=== PATIENT | female | born 1930 | race Caucasian/White ===

== ENCOUNTER 2016-10-04 12:41 | Emergency (ER) | payer MEDICARE, BC ==
--- NOTE | 2016-10-04 13:13 | EDM.PDOC ---
ED HPI GENERAL MEDICAL PROBLEM - General Chief Complaint: Cardiovascular Problem Stated Complaint: HIGH BP Time Seen by Provider: 10/04/16 13:12 Source of Information: Reports: Patient History Limitations: Reports: No Limitations - History of Present Illness INITIAL COMMENTS - FREE TEXT/NARRATIVE: 86-year-old female sent [place] due to discovery of marked elevation of blood pressure. Patient reports that her blood pressure was checked 3 times in a row on the same arm and each time it seemed to go higher. Apparently the systolic pressure was greater than 210 and the diastolic was greater than 112. feels fine without a headache visual acuity changes or nausea vomiting etc. She is in no pain. Initial blood pressure here is 153/59. 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 (see below) - Related Data Allergies Allergy/AdvReac Type Severity Reaction Status Date / Time meperidine HCl [From Demerol] Allergy unknown Verified 10/04/16 13:17 Home Meds: Home Meds Carvedilol 2 PO DAILY 05/28/13 [History] Citalopram [Citalopram Hbr] 20 mg PO DAILY 05/28/13 [History] Clopidogrel [Plavix] 75 mg PO DAILY 05/28/13 [History] Furosemide [Lasix] 20 mg PO DAILY 05/28/13 [History] Insulin Aspart [NovoLOG] SUBCUT 05/28/13 [History] Insulin Glarg,Human.Rec.Analog [Lantus] 16 units SQ QPM 05/28/13 [History] Insulin Glarg,Human.Rec.Analog [Lantus] 38 units SQ QAM 05/28/13 [History] Levothyroxine 25 mcg PO DAILY 05/28/13 [History] Lisinopril [Zestril] 20 mg PO Q12HR 05/28/13 [History] NIFEdipine [Nifedipine ER] 30 mg 05/28/13 [History] Omeprazole 40 mg PO DAILY 05/28/13 [History] atorvaSTATin [Lipitor] 20 mg PO DAILY 05/28/13 [History] hydrOXYzine HCl [hydrOXYzine] 12.5 - 25 mg PO ASDIRECTED 05/28/13 [History] Past Medical History Cardiovascular History: Reports: Bypass (5 bypass grafts in the past.), High Cholesterol, Hypertension, [place], Stents Gastrointestinal History: Reports: GERD Musculoskeletal History: Reports: Back Pain, Chronic, Osteoarthritis, Osteoporosis Neurological History: Reports: Other (See Below) (Chronic insomnia.) Psychiatric History: Reports: Depression Endocrine/Metabolic History: Reports: Diabetes, Type II (Controlled with insulin and patient reports diabetic control leaves a lot to be desired.), Obesity/BMI 30+ Social & Family History - Recreational Drug Use Recreational Drug Use: No - Living Situation & Occupation Living situation: Reports: , Extended Care Facility (Currently living at [facility].) Occupation: Retired ED ROS GENERAL - Review of Systems Review Of Systems: See Below Constitutional: Reports: Fatigue. Denies: Fever, Chills, Malaise, Weakness HEENT: Reports: Glasses Respiratory: Reports: Shortness of Breath (Shortness of breath on exertion.) Cardiovascular: Reports: Blood Pressure Problem (Chronic hypertension), Dyspnea on Exertion, Edema (Chronic mild edema in both lower extremities she wears ROSSY stockings daily.) Endocrine: Reports: Fatigue, High Glucose (Has known type 2 diabetes which she reports is not all that well controlled.) GI/Abdominal: Reports: Constipation. Denies: Abdominal Pain, Anorexia, Decreased Appetite : Reports: Frequency, Incontinence (Urge and stress component) Musculoskeletal: Reports: Neck Pain, Back Pain, Joint Pain (Knees and hips. Walks with aid of a walker.) Skin: Reports: No Symptoms Neurological: Reports: No Symptoms Psychiatric: Reports: No Symptoms Hematologic/Lymphatic: Reports: No Symptoms Immunologic: Reports: No Symptoms ED EXAM, GENERAL - Physical Exam Exam: See Below Exam Limited By: No Limitations General Appearance: Alert, WD/WN, No Apparent Distress Eye Exam: Bilateral Eye: Normal Fundi, Normal Inspection Throat/Mouth: Normal Inspection, Normal Oropharynx Head: Atraumatic, Normocephalic Neck: Normal Inspection, Supple, Non-Tender, Full Range of Motion. No: Carotid Bruit, Lymphadenopathy (R) Respiratory/Chest: No Respiratory Distress, Lungs Clear, Normal Breath Sounds, No Accessory Muscle Use, Other (Well-healed sternotomy incision. She's had 5 bypasses in the past.) Cardiovascular: Regular Rate, Rhythm, No Gallop, No Murmur, No Rub. No: Normal Peripheral Pulses, No Edema Peripheral Pulses: 1+: Posterior Tibial (L), Posterior Tibial (R), Dorsalis Pedis (L), Dorsalis Pedis (R) GI/Abdominal: Normal Bowel Sounds, Soft, Non-Tender, No Distention, Other ( Abdominal girth limits ability to palpate solid organs.) Back Exam: Normal Inspection, Full Range of Motion. No: CVA Tenderness (L), CVA Tenderness (R) Extremities: Pedal Edema (Trace edema both lower extremities at ankles.) Neurological: Alert, Oriented, CN II-XII Intact, Normal Cognition Psychiatric: Normal Affect, Normal Mood Skin Exam: Warm, Dry, Intact, Normal Color, No Rash Course - Vital Signs Last Recorded V/S: Last Vital Signs Temp 36.1 C 10/04/16 13:13 Pulse 61 10/04/16 13:13 Resp 18 10/04/16 13:13 BP 153/59 H 10/04/16 13:13 Pulse Ox 94 L 10/04/16 13:13 - Orders/Labs/Meds Orders: Active Orders 24 hr Category Date Time Status Orthostatic Vital Signs [RC] ASDIRECTED Care 10/04/16 13:23 Active - Radiology Interpretation Free Text/Narrative:: 86-year-old female presents the ED for evaluation of reported marked elevation her blood pressure. EP was reported to be greater than 210 systolically greater than 112 diastolically. Apparently blood pressure was repeated in the same arm on 3 occasions and each time it went higher. Therefore she was advised to come to the emergency room for evaluation. However she is asymptomatic. And blood pressure here initially was 153/59 and for the most part is staying between 135 and 150 systolically. At the time of discharge was 148 on 44 with a heart rate of 62. She was monitored in the ER for approximately an hour. No tests were done. She will be discharged back to home with no changes to medications to be made. Departure - Departure Time of Disposition: 13:55 Disposition: Home, Self-Care 01 Condition: Fair Clinical Impression: Labile essential hypertension Referrals: Jay Kowalski MD [Primary Care Provider] - Forms: ED Department Discharge Additional Instructions: Evaluation in the emergency room today in regards to reported very high blood pressure with a systolic her top number greater than 210 and the diastolic number reported to be greater than 112. Blood pressure initially here was 153 over 59 and came down as low as 143/52. Monitoring revealed blood pressure to be adequately controlled. Therefore at this time no changes in medications are advised. Suggest blood pressure checks on a random basis to see if there is marked lability which means roller coaster up and down changes to blood pressure that may make us you some blood pressure medications in the morning and some in the evening to try and prevent pressure spikes. Follow-up with her personal physician as planned. - My Orders Last 24 Hours: My Active Orders 10/04/16 13:23 Orthostatic Vital Signs [RC] ASDIRECTED - Assessment/Plan Last 24 Hours: My Active Orders 10/04/16 13:23 Orthostatic Vital Signs [RC] ASDIRECTED
[2016-10-04 13:15] VITALS: BP 153/59
== END 2016-10-04 14:20 | disposition home or self-care (01) ==
LOC: JD.ED 12:41
DX: I25.2 Old myocardial infarction (principal); E78.00 Pure hypercholesterolemia, unspecified; K21.9 Gastro-esophageal reflux disease without esophagitis; M19.90 Unspecified osteoarthritis, unspecified site; M81.0 Age-related osteoporosis without current pathological fracture; E11.9 Type 2 diabetes mellitus without complications; E66.9 Obesity, unspecified; F32.9 Major depressive disorder, single episode, unspecified; Z95.1 Presence of aortocoronary bypass graft; Z79.4 Long term (current) use of insulin; Z79.02 Long term (current) use of antithrombotics/antiplatelets; Z79.899 Other long term (current) drug therapy; Z88.6 Allergy status to analgesic agent; Z68.38 Body mass index [BMI] 38.0-38.9, adult
CPT/HCPCS: 99282; 99283

== ENCOUNTER 2017-08-15 15:42 | Emergency (ER) | payer MEDICARE, BC ==
[2017-08-15] MEDS ORDERED: Meclizine 12.5 MG Tab PO ONE (16:51)
[2017-08-15] MEDS ORDERED: Sodium Chloride 0.9% 10 ML Syringe FLUSH PRN (16:51)
--- NOTE | 2017-08-15 16:57 | EDM.PDOC ---
ED HPI GENERAL MEDICAL PROBLEM - General Chief Complaint: Syncope Stated Complaint: DIZZYNESS Time Seen by Provider: 08/15/17 16:05 Source of Information: Reports: Patient History Limitations: Reports: No Limitations - History of Present Illness INITIAL COMMENTS - FREE TEXT/NARRATIVE: Patient is complaining dizziness that started at around 1400hrs. Patient was in the bathroom and felt dizzy and had to catch herself from falling. Patient dened having a BM and was no pushing hard with urinating. Patient states movement does worsen the dizziness. She has history of vertigo. States symptoms were similar to previous episodes. Currently has no symptoms. Daughter states after the episode she did dano lean to the left and was able to walk with assistance. Patient has a history of stroke right side with no deficits. She presents to the E.D. with elevated BP. Patient and daughter state this is a normal reading for the patient. She denies symptoms experienced today were similar to previous stroke symptoms. She denies headache, vision changes, stiff neck, no sitting tingling, dysuria, chest pain, shortness of breath, fever, increased weight, increased swelling to lower extremities, swallowing issues, and or any additional complaints. Past medical history: PID, hypertension, depression, type 2 diabetes, hyperlipidemia, coronary disease, edema, chronic pain, osteoarthritis, hypothyroidism, encephalopathy, TIA, subdural hematoma/hemorrhage, venous insufficiency Current medications include: see list. - Related Data Allergies Allergy/AdvReac Type Severity Reaction Status Date / Time meperidine HCl [From Demerol] Allergy Vomiting Verified 08/15/17 15:56 metformin Allergy Other Verified 08/15/17 15:57 morphine Allergy Vomiting Verified 08/15/17 15:57 Home Meds: Home Meds Carvedilol 25 mg PO DAILY 05/28/13 [History] Citalopram [Citalopram Hbr] 20 mg PO DAILY 05/28/13 [History] Clopidogrel [Plavix] 75 mg PO DAILY 05/28/13 [History] Furosemide [Lasix] 20 mg PO DAILY 05/28/13 [History] Insulin Aspart [NovoLOG] 10 units SUBCUT ASDIRECTED 05/28/13 [History] Insulin Glarg,Human.Rec.Analog [Lantus] 16 units SQ QPM 05/28/13 [History] Insulin Glarg,Human.Rec.Analog [Lantus] 38 units SQ QAM 05/28/13 [History] Levothyroxine 25 mcg PO DAILY 05/28/13 [History] Lisinopril [Zestril] 20 mg PO Q12HR 05/28/13 [History] NIFEdipine [Nifedipine ER] 30 mg PO DAILY 05/28/13 [History] Omeprazole 40 mg PO DAILY 05/28/13 [History] atorvaSTATin [Lipitor] 20 mg PO DAILY 05/28/13 [History] hydrOXYzine HCl [hydrOXYzine] 12.5 - 25 mg PO ASDIRECTED 05/28/13 [History] Past Medical History Cardiovascular History: Reports: Bypass, High Cholesterol, Hypertension, [place], Stents Gastrointestinal History: Reports: 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 Psychiatric History: Reports: Depression Endocrine/Metabolic History: Reports: Diabetes, Type II, Obesity/BMI 30+ - Past Surgical History Cardiovascular Surgical History: Reports: Coronary Artery Bypass Social & Family History - Family History Family Medical History: Noncontributory - Tobacco Use Smoking Status *Q: Former Smoker Used Tobacco, but Quit: Yes Month/Year Tobacco Last Used: 1974 - Caffeine Use Caffeine Use: Reports: Coffee - Recreational Drug Use Recreational Drug Use: No - Living Situation & Occupation Living situation: Reports: , Extended Care Facility (Currently living at [facility].) Occupation: Retired ED ROS GENERAL - Review of Systems Review Of Systems: See Below Constitutional: Reports: No Symptoms HEENT: Reports: No Symptoms Respiratory: Reports: No Symptoms Cardiovascular: Reports: No Symptoms Endocrine: Reports: No Symptoms GI/Abdominal: Reports: No Symptoms : Reports: No Symptoms Musculoskeletal: Reports: No Symptoms Neurological: Reports: Dizziness, Headache, Gait Disturbance. Denies: Numbness , Pre-Existing Deficit, Seizure, Syncope, Tingling, Weakness ED EXAM, DIZZINESS - Physical Exam Exam: See Below Exam Limited By: No Limitations General Appearance: Alert, WD/WN, No Apparent Distress Eye Exam: Bilateral Eye: EOMI, Nystagmus (none noted), PERRL Nystagmus: No: worsens with head to L, worsens with head to R, reproducible, reversible, constant, short duration Ears: Normal External Exam, Normal Canal, Hearing Grossly Normal, Normal TMs Nose: Normal Inspection Throat/Mouth: Normal Inspection, Normal Oropharynx, Normal Voice Head Exam: Atraumatic, Normocephalic Vertigo: worsens with head to L. No: worsens with head to R, reproducible, reversible, constant, short duration Neck: Normal Inspection, Supple, Non-Tender. No: Carotid Bruit Respiratory/Chest: No Respiratory Distress, Lungs Clear, Normal Breath Sounds, No Accessory Muscle Use, Chest Non-Tender Cardiovascular: Normal Peripheral Pulses, Regular Rate, Rhythm, No Murmur GI/Abdominal: Normal Bowel Sounds, Soft, Non-Tender, No Distention Neurological: Alert, Normal Mood/Affect, Normal Dorsiflexion, CN II-XII Intact, Normal Plantar Flexion, No Motor/Sensory Deficits, Oriented x 3, Other (No facial droop, slurred speech, tongue deviation, pronator drift, and or nystagmus. No weakness discrepancies to the upper/lower extremities. Cerebellar fx intact: finger to nose, rapid alternating movements, and heal to holt. ) Extremities: Normal Inspection, Normal Range of Motion, Non-Tender, Normal Capillary Refill Psychiatric: Normal Affect, Normal Mood Skin Exam: Warm, Dry, Intact, Normal Color, No Rash Course - Vital Signs Last Recorded V/S: Last Vital Signs Temp 97.2 F 08/15/17 15:51 Pulse 63 08/15/17 15:51 Resp 18 08/15/17 15:51 BP 210/77 H 08/15/17 18:23 Pulse Ox 95 08/15/17 15:51 Orthostatic Blood Pressure [ 197/76 Standing] Orthostatic Blood Pressure [ 208/73 Sitting] Orthostatic Blood Pressure [ 192/69 Supine] - Orders/Labs/Meds Labs: Laboratory Tests 08/15/17 08/15/17 08/15/17 Range/Units 16:52 16:55 16:55 WBC 6.82 (3.98-10.04) K/mm3 RBC 4.74 (3.98-5.22) M/mm3 Hgb 11.9 (11.2-15.7) gm/L Hct 39.1 (34.1-44.9) % MCV 82.5 (79.4-94.8) fl MCH 25.1 L (25.6-32.2) pg MCHC 30.4 L (32.2-35.5) g/dl RDW Std Deviation 44.1 (36.4-46.3) fL Plt Count 214 (182-369) K/mm3 MPV 10.8 (9.4-12.3) fl Neutrophils % (Manual) 53 (40-60) % Band Neutrophils % 0 (0-10) % Lymphocytes % (Manual) 37 (20-40) % Atypical Lymphs % 6 % Monocytes % (Manual) 1 L (2-10) % Eosinophils % (Manual) 3 (0.7-5.8) % Basophils % (Manual) 0 L (0.1-1.2) Platelet Estimate Adequate Plt Morphology Comment Normal RBC Morph Comment Normal Sodium 138 (136-145) mEq/L Potassium 3.6 (3.5-5.1) mEq/L Chloride 101 (98-107) mEq/L Carbon Dioxide 29 (21-32) mEq/L Anion Gap 11.6 (5-15) BUN 19 H (7-18) mg/dL Creatinine 0.9 (0.55-1.02) mg/dL Est Cr Clr Drug Dosing 38.88 mL/min Estimated GFR (MDRD) 59 (>60) mL/min BUN/Creatinine Ratio 21.1 H (14-18) Glucose 213 H (83-115) mg/dL POC Glucose (83-110) mg/dL Calcium 8.8 (8.5-10.1) mg/dL Total Bilirubin 0.3 (0.2-1.0) mg/dL AST 24 (15-37) U/L ALT 29 (14-59) U/L Alkaline Phosphatase 95 (46-116) U/L Troponin I < 0.017 (0.00-0.056) ng/mL Total Protein 7.3 (6.4-8.2) g/dl Albumin 3.4 (3.4-5.0) g/dl Globulin 3.9 gm/dL Albumin/Globulin Ratio 0.9 L (1-2) TSH 3rd Generation 1.603 (0.358-3.74) uIU/mL Urine Color Yellow (Yellow) Urine Appearance Slt cloudy H (Clear) Urine pH 6.0 (5.0-8.0) Ur Specific Sullivan > or = 1.030 (1.005-1.030) Urine Protein 1+ H (Negative) Urine Glucose (UA) Negative (Negative) Urine Ketones Trace H (Negative) Urine Occult Blood Negative (Negative) Urine Nitrite Negative (Negative) Urine Bilirubin 1+ H (Negative) Urine Urobilinogen 1.0 (0.2-1.0) Ur Leukocyte Esterase Negative (Negative) Urine RBC 0-5 (0-5) /hpf Urine WBC 0-5 (0-5) /hpf Ur Epithelial Cells 0-5 (0-5) /hpf Urine Bacteria Moderate H (FEW) /hpf Urine Mucus Not seen (FEW) /hpf 08/15/17 Range/Units 18:04 WBC (3.98-10.04) K/mm3 RBC (3.98-5.22) M/mm3 Hgb (11.2-15.7) gm/L Hct (34.1-44.9) % MCV (79.4-94.8) fl MCH (25.6-32.2) pg MCHC (32.2-35.5) g/dl RDW Std Deviation (36.4-46.3) fL Plt Count (182-369) K/mm3 MPV (9.4-12.3) fl Neutrophils % (Manual) (40-60) % Band Neutrophils % (0-10) % Lymphocytes % (Manual) (20-40) % Atypical Lymphs % % Monocytes % (Manual) (2-10) % Eosinophils % (Manual) (0.7-5.8) % Basophils % (Manual) (0.1-1.2) Platelet Estimate Plt Morphology Comment RBC Morph Comment Sodium (136-145) mEq/L Potassium (3.5-5.1) mEq/L Chloride (98-107) mEq/L Carbon Dioxide (21-32) mEq/L Anion Gap (5-15) BUN (7-18) mg/dL Creatinine (0.55-1.02) mg/dL Est Cr Clr Drug Dosing mL/min Estimated GFR (MDRD) (>60) mL/min BUN/Creatinine Ratio (14-18) Glucose (83-115) mg/dL POC Glucose 207 H (83-110) mg/dL Calcium (8.5-10.1) mg/dL Total Bilirubin (0.2-1.0) mg/dL AST (15-37) U/L ALT (14-59) U/L Alkaline Phosphatase (46-116) U/L Troponin I (0.00-0.056) ng/mL Total Protein (6.4-8.2) g/dl Albumin (3.4-5.0) g/dl Globulin gm/dL Albumin/Globulin Ratio (1-2) TSH 3rd Generation (0.358-3.74) uIU/mL Urine Color (Yellow) Urine Appearance (Clear) Urine pH (5.0-8.0) Ur Specific Sullivan (1.005-1.030) Urine Protein (Negative) Urine Glucose (UA) (Negative) Urine Ketones (Negative) Urine Occult Blood (Negative) Urine Nitrite (Negative) Urine Bilirubin (Negative) Urine Urobilinogen (0.2-1.0) Ur Leukocyte Esterase (Negative) Urine RBC (0-5) /hpf Urine WBC (0-5) /hpf Ur Epithelial Cells (0-5) /hpf Urine Bacteria (FEW) /hpf Urine Mucus (FEW) /hpf Meds: Medications Discontinued Medications Generic Name Dose Route Start Last Admin Trade Name Freq PRN Reason Stop Dose Admin Clonidine HCl 0.2 mg 08/15/17 18:12 08/15/17 18:23 Catapres PO 08/15/17 18:13 0.2 mg ONETIME ONE Administration Sodium Chloride 1,000 mls @ 150 mls/hr 08/15/17 17:00 08/15/17 17:01 Normal Saline IV 150 mls/hr ASDIRECTED ANA Administration Meclizine HCl 12.5 mg 08/15/17 16:51 08/15/17 16:59 Antivert PO 08/15/17 16:52 12.5 mg ONETIME ONE Administration Sodium Chloride 10 ml 08/15/17 16:51 08/15/17 16:59 Saline Flush FLUSH 10 ml ASDIRECTED PRN Administration Keep Vein Open - Re-Assessments/Exams Free Text/Narrative Re-Assessment/Exam: IV established with with initial blood work including: CBC, chem 14, troponin, TSH, UA, orthostatic vital signs, and EKG. CT of the head without contrast obtained. Ordered meclizine 12.5mg po and NS 150mls/hr. Per nursing staff patient did get up to walk with no difficulties. No gate abnormalities noted. EKG: Sinus rhythm at a rate of 56 with QTC 448 and AL interval 188. Q waves anterior lateral leads with mild ST elevation beats V2. T wave inversion in leads 1 and V4 through 6. Blood pressure continues to run high. Last reading 214/84. Will await for CT of the head prior to initiating any treatment. CT head w/o contrast: No acute intracranial abnormalities noted. Reviewed with Dr. Sharma. 1954 BP 222/93 right, 229/95 left. Discussed patient with Dr. Sharma and he agreed with administration of clonidine. Suggested higher dose of 0.2mg PO. Labs reviewed: CBC essentially normal. CMP revealed a slightly elevated BUN and glucose of 213. Troponin within normal limits. TSH normal. UA protein one plus, trace ketones, bilirubin 1+, bacteria moderate. Urine wbc's , nitrates, leukocyte Estrace all negative. 1911 blood pressure 195/68. 1940 BP 179/71. 08/15/17 19:51 172/52. Patient did get up and ambulate with no difficulties. Still to do not have clear indication why patients BP was elevated. Symptoms came on at noon today after eating. Thus troponin should have been positive if heart related.She has had no cp, sob, palpations, and or pre/syncopal episodes. Dizziness came about with body position changes. Described as room spinning. This has since resolved. Do not think patient had a TIA with no neurological findings on examination. I do not think CTA of the head and neck would be beneficial at this time. I will have patient see her PCP on followup this week. I discussed the concerning symptoms for which to return to the E.D. with the patient/ family. The patient/family verbalized understanding. All questions were answered. Departure - Departure Time of Disposition: 20:01 Disposition: Home, Self-Care 01 Condition: Good Clinical Impression: Hypertension Qualifiers: Hypertension type: unspecified Qualified Code(s): I10 - Essential (primary) hypertension - Discharge Information Instructions: How to Take Your Blood Pressure, [id number], DASH Eating Plan, Hypertension, [id number], Managing Your Hypertension, Preventing Cerebrovascular Disease Referrals: Jay Kowalski MD [Primary Care Provider] - Forms: ED Department Discharge Additional Instructions: Do not have clear reason for why blood pressure was elevated. Suspect dizziness was related to the elevated BP. Please followup with PCP this week for reevaluation. Return to the E.D. if you develop any new or worsening symptoms as discussed. Check your blood pressure every other day at different times during the day. Allow yourself approximately 15 minutes to relax prior to taking. Do not take if in pain, with increased anxiety, or just had exercised. Keep a log with the blood pressure readings. Take your blood pressure machine and log with you to your next appointment with PCP to ensure blood pressure machine is calibrated appropriately.
[2017-08-15] MEDS ORDERED: Sodium Chloride 0.9% 1,000 ML IV SCH (17:00)
[2017-08-15] MEDS ORDERED: cloNIDine 0.1 MG Tab PO ONE (18:12)
[2017-08-15 18:24] VITALS: BP 210/77
--- NOTE | 2017-08-16 08:29 | CT ---
Head CT Technique: Multiple axial sections through the brain were obtained. Intravenous contrast was not utilized. Comparison: Prior head CT exam of 12/25/14. Findings: Ventricles along with basal cisterns and sulci over the convexities are moderately prominent. Diminished density is noted within the periventricular and subcortical white matter which is felt compatible with small vessel ischemic demyelination change. Old lacunar infarcts are also noted within the basal ganglia. No other abnormal parenchymal densities are seen. No evidence of intracranial hemorrhage. No midline shift or mass effect is seen. Bone window settings show mucosal thickening within the right side of the sphenoid sinus which is an interval change from previous exam. Atherosclerotic calcification is noted within the carotid siphon. No acute calvarial abnormality is seen. 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 Impression: 1. Senescent changes as described above. No acute intracranial abnormality is appreciated. No significant change is seen from prior study other than mild chronic appearing sinus disease within the right sphenoid sinus. Diagnostic code #2 I agree with preliminary report from [facility], finalized at 08/15/17, 6:54 PM Central Time
== END 2017-08-15 20:15 | disposition home or self-care (01) ==
LOC: JD.ED 15:42
DX: I10 Essential (primary) hypertension (principal); E11.9 Type 2 diabetes mellitus without complications; E78.5 Hyperlipidemia, unspecified; F32.9 Major depressive disorder, single episode, unspecified; Z79.84 Long term (current) use of oral hypoglycemic drugs; Z88.5 Allergy status to narcotic agent; Z79.4 Long term (current) use of insulin
CPT/HCPCS: 36415; 70450; 80053; 81001; 82962; 84443; 84484; 85007; 85027; 93005; 96360; 96361; 99285; A9270; J7040; J7050; 99283

== ENCOUNTER 2018-05-20 13:47 | Inpatient (IN) | payer MEDICARE, BC ==
[2018-05-20] MEDS ORDERED: Sodium Chloride 0.9% 10 ML Syringe FLUSH PRN (13:53)
[2018-05-20] MEDS ORDERED: Ondansetron 4 MG/2 ML SDV IVPUSH ONE (14:07)
--- NOTE | 2018-05-20 14:31 | CT ---
Head CT Technique: Multiple axial sections through the brain were obtained. Intravenous contrast was not utilized. Comparison: Prior head CT study of 08/15/17. Findings: Ventricles along with basal cisterns and sulci over the convexities are moderately prominent. Diminished density is noted within the periventricular and subcortical white matter compatible with small vessel ischemic demyelination change. Old appearing lacunar infarcts are noted on both sides of the basal ganglia. No other abnormal parenchymal densities are seen. No evidence of intracranial hemorrhage. No midline shift or mass effect is seen. Bone window settings were reviewed which shows bilateral jason holes. No acute calvarial abnormality is seen. Rounded soft tissue density seen within the sphenoid sinus compatible with retention cyst measuring 1.3 cm. Impression: 1. Senescent change as noted above. 2. Incidental sinus finding. 3. 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 4. No acute intracranial abnormality is appreciated. Diagnostic code #2
--- NOTE | 2018-05-20 15:39 | EDM.PDOC ---
ED HPI GENERAL MEDICAL PROBLEM - General Chief Complaint: Neuro Symptoms/Deficits Stated Complaint: SPEECH PROBLEMS, Time Seen by Provider: 05/20/18 13:48 Source of Information: Reports: Patient, Family History Limitations: Reports: No Limitations - History of Present Illness INITIAL COMMENTS - FREE TEXT/NARRATIVE: The patient presents from [facility] for a possible stroke. The patient's last known well was 12pm or noon today. She came down for lunch and her daughter joined her after and she noticed something was not right. The patient could not speak and was mixing words up. She could walk and move her arms. She did say she had a headache. When she arrived here, she could not speak. She was able to stand up from the wheel chair and sit on the cot and she moved her arms. She could not answer any questions for me. She could follow commands. Onset: Sudden Duration: Hour(s): (noon) Location: Reports: Head Severity: Moderate Improves with: Reports: None Worsens with: Reports: None Associated Symptoms: Reports: Headaches. Denies: Cough, Fever/Chills, Nausea/ Vomiting, Shortness of Breath - Related Data Allergies Allergy/AdvReac Type Severity Reaction Status Date / Time meperidine HCl [From Demerol] Allergy Vomiting Verified 08/15/17 15:56 metformin Allergy Other Verified 08/15/17 15:57 morphine Allergy Vomiting Verified 08/15/17 15:57 Home Meds: Home Meds Carvedilol 25 mg PO BID 05/28/13 [History] Citalopram [Citalopram Hbr] 10 mg PO DAILY 05/28/13 [History] Clopidogrel [Plavix] 75 mg PO DAILY 05/28/13 [History] Furosemide [Lasix] 20 mg PO DAILY 05/28/13 [History] Insulin Aspart [NovoLOG] 10 units SUBCUT ASDIRECTED 05/28/13 [History] Insulin Glarg,Human.Rec.Analog [Lantus] 16 units SQ QPM 05/28/13 [History] Insulin Glarg,Human.Rec.Analog [Lantus] 38 units SQ QAM 05/28/13 [History] Levothyroxine 25 mcg PO DAILY 05/28/13 [History] Lisinopril [Zestril] 20 mg PO Q12HR 05/28/13 [History] Omeprazole 40 mg PO DAILY 05/28/13 [History] atorvaSTATin [Lipitor] 20 mg PO BEDTIME 05/28/13 [History] Acetaminophen [Tylenol] 650 mg PO BID 05/20/18 [History] Diltiazem [Cardizem CD] 120 mg PO DAILY 05/20/18 [History] Hydrocortisone [Hydrocortisone 1% Crm] 1 mg TOP BID 05/20/18 [History] Multivitamin [Multivitamins] 1 each PO DAILY 05/20/18 [History] Nystatin [Nystatin Crm] 1 gm TOP BID 05/20/18 [History] Spironolactone [Aldactone] 12.5 mg PO DAILY 05/20/18 [History] Past Medical History Cardiovascular History: Reports: Bypass, High Cholesterol, Hypertension, [place], Stents Gastrointestinal History: Reports: [employer] History: Reports: Musculoskeletal History: Reports: Back Pain, Chronic, Osteoarthritis, Osteoporosis Neurological History: Reports: Other (See Below) Other Neuro History: 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 Psychiatric History: Reports: Depression Endocrine/Metabolic History: Reports: Diabetes, Type II, Obesity/BMI 30+ - Past Surgical History Cardiovascular Surgical History: Reports: Coronary Artery Bypass Social & Family History - Family History Family Medical History: Noncontributory - Tobacco Use Smoking Status *Q: Never Smoker - Caffeine Use Caffeine Use: Reports: Coffee - Recreational Drug Use Recreational Drug Use: No - Living Situation & Occupation Living situation: Reports: , Extended Care Facility (Currently living at [facility].) Occupation: Retired ED ROS GENERAL - Review of Systems Review Of Systems: Unable To Obtain ED EXAM, NEURO - Physical Exam Exam: See Below Exam Limited By: Altered Mental Status General Appearance: Alert, Other (She cannot talk but she will follow commands) Eye Exam: Left Eye: Vision Changes, Bilateral Eye: EOMI, PERRL Ears: Normal External Exam Nose: Normal Inspection Head Exam: Atraumatic, Normocephalic Neck: Normal Inspection Respiratory/Chest: No Respiratory Distress, Lungs Clear, Normal Breath Sounds Cardiovascular: Regular Rate, Rhythm, No Edema, No Murmur GI/Abdominal: Soft, Non-Tender, No Organomegaly, No Mass Neurological: Alert, No Motor/Sensory Deficits, Other (She cannot talk. She follows commands. She has equal strength in her arms and legs) Back Exam: Normal Inspection Extremities: Normal Inspection EKG INTERPRETATION EKG Date: 05/20/18 Time: 14:11 Rhythm: Other (sinus bradycardia) Rate (Beats/Min): 51 [place]: Normal P-Wave: Present QRS: Normal ST-T: Other (Flattened T waves in the lateral leads) QT: Normal EKG Interpretation Comments: Q waves in the anterior leads Course - Vital Signs Last Recorded V/S: Last Vital Signs Temp 97.8 F 05/20/18 13:53 Pulse Resp 16 05/20/18 13:53 BP Pulse Ox 98 05/20/18 13:53 - Orders/Labs/Meds Orders: Active Orders 24 hr Category Date Time Status Cardiac Monitoring [RC] . DIRECTED Care 05/20/18 13:53 Active EKG Documentation Completion [RC] STAT Care 05/20/18 13:54 Active Oxygen Therapy [RC] PRN Care 05/20/18 13:54 Active Peripheral IV Care [RC] . DIRECTED Care 05/20/18 13:54 Active Sodium Chloride 0.9% [Saline Flush] Med 05/20/18 13:53 Active 10 ml FLUSH ASDIRECTED PRN Peripheral IV Insertion Adult [OM.PC] Stat Oth 05/20/18 13:53 Ordered Medication Orders Sodium Chloride (Saline Flush) 10 ml FLUSH ASDIRECTED PRN PRN Reason: Keep Vein Open Last Admin: 05/20/18 13:55 Dose: 10 ml Labs: Laboratory Tests 05/20/18 05/20/18 05/20/18 Range/Units 13:53 13:55 13:55 WBC 7.04 (3.98-10.04) K/mm3 RBC 4.70 (3.98-5.22) M/mm3 Hgb 11.9 (11.2-15.7) gm/L Hct 38.8 (34.1-44.9) % MCV 82.6 (79.4-94.8) fl MCH 25.3 L (25.6-32.2) pg MCHC 30.7 L (32.2-35.5) g/dl RDW Std Deviation 44.7 (36.4-46.3) fL Plt Count 115 L (182-369) K/mm3 MPV 11.6 (9.4-12.3) fl Neut % (Auto) 58.8 (34.0-71.1) % Lymph % (Auto) 28.6 (19.3-51.7) % [place] % (Auto) 9.4 (4.7-12.5) % Eos % (Auto) 2.8 (0.7-5.8) Baso % (Auto) 0.4 (0.1-1.2) % Neut # (Auto) 4.14 (1.56-6.13) K/mm3 Lymph # (Auto) 2.01 (1.18-3.74) K/mm3 [place] # (Auto) 0.66 H (0.24-0.36) K/mm3 Eos # (Auto) 0.20 (0.04-0.36) K/mm3 Baso # (Auto) 0.03 (0.01-0.08) K/mm3 ESR (0-20) mm/hr PT (9.5-12.1) SECONDS INR APTT (24-31) SECONDS Sodium 138 (136-145) mEq/L Potassium 3.6 (3.5-5.1) mEq/L Chloride 99 (98-107) mEq/L Carbon Dioxide 30 (21-32) mEq/L Anion Gap 12.6 (5-15) BUN 15 (7-18) mg/dL Creatinine 1.0 (0.55-1.02) mg/dL Est Cr Clr Drug Dosing 35.70 mL/min Estimated GFR (MDRD) 52 (>60) mL/min BUN/Creatinine Ratio 15.0 (14-18) Glucose 97 (83-115) mg/dL POC Glucose 118 H (83-110) mg/dL Calcium 9.0 (8.5-10.1) mg/dL Total Bilirubin 0.2 (0.2-1.0) mg/dL AST 24 (15-37) U/L ALT 29 (14-59) U/L Alkaline Phosphatase 94 (46-116) U/L Troponin I < 0.017 (0.00-0.056) ng/mL Total Protein 7.4 (6.4-8.2) g/dl Albumin 3.3 L (3.4-5.0) g/dl Globulin 4.1 gm/dL Albumin/Globulin Ratio 0.8 L (1-2) Urine Color (Yellow) Urine Appearance (Clear) Urine pH (5.0-8.0) Ur Specific [place] (1.005-1.030) Urine Protein (Negative) Urine Glucose (UA) (Negative) Urine Ketones (Negative) Urine Occult Blood (Negative) Urine Nitrite (Negative) Urine Bilirubin (Negative) Urine Urobilinogen (0.2-1.0) Ur Leukocyte Esterase (Negative) Urine RBC (0-5) /hpf Urine WBC (0-5) /hpf Ur Epithelial Cells Ur Squamous Epith Cells (0-5) /hpf Urine Bacteria (FEW) /hpf Urine Mucus (FEW) /hpf 05/20/18 05/20/18 05/20/18 Range/Units 13:55 14:25 14:50 WBC (3.98-10.04) K/mm3 RBC (3.98-5.22) M/mm3 Hgb (11.2-15.7) gm/L Hct (34.1-44.9) % MCV (79.4-94.8) fl MCH (25.6-32.2) pg MCHC (32.2-35.5) g/dl RDW Std Deviation (36.4-46.3) fL Plt Count (182-369) K/mm3 MPV (9.4-12.3) fl Neut % (Auto) (34.0-71.1) % Lymph % (Auto) (19.3-51.7) % [place] % (Auto) (4.7-12.5) % Eos % (Auto) (0.7-5.8) Baso % (Auto) (0.1-1.2) % Neut # (Auto) (1.56-6.13) K/mm3 Lymph # (Auto) (1.18-3.74) K/mm3 [place] # (Auto) (0.24-0.36) K/mm3 Eos # (Auto) (0.04-0.36) K/mm3 Baso # (Auto) (0.01-0.08) K/mm3 ESR 35 H (0-20) mm/hr PT 11.1 (9.5-12.1) SECONDS INR 1.02 APTT 28 (24-31) SECONDS Sodium (136-145) mEq/L Potassium (3.5-5.1) mEq/L Chloride (98-107) mEq/L Carbon Dioxide (21-32) mEq/L Anion Gap (5-15) BUN (7-18) mg/dL Creatinine (0.55-1.02) mg/dL Est Cr Clr Drug Dosing mL/min Estimated GFR (MDRD) (>60) mL/min BUN/Creatinine Ratio (14-18) Glucose (83-115) mg/dL POC Glucose (83-110) mg/dL Calcium (8.5-10.1) mg/dL Total Bilirubin (0.2-1.0) mg/dL AST (15-37) U/L ALT (14-59) U/L Alkaline Phosphatase (46-116) U/L Troponin I (0.00-0.056) ng/mL Total Protein (6.4-8.2) g/dl Albumin (3.4-5.0) g/dl Globulin gm/dL Albumin/Globulin Ratio (1-2) Urine Color Yellow (Yellow) Urine Appearance Clear (Clear) Urine pH 6.0 (5.0-8.0) Ur Specific [place] 1.015 (1.005-1.030) Urine Protein Negative (Negative) Urine Glucose (UA) Negative (Negative) Urine Ketones Negative (Negative) Urine Occult Blood Negative (Negative) Urine Nitrite Negative (Negative) Urine Bilirubin Negative (Negative) Urine Urobilinogen 0.2 (0.2-1.0) Ur Leukocyte Esterase Negative (Negative) Urine RBC 0-5 (0-5) /hpf Urine WBC 0-5 (0-5) /hpf Ur Epithelial Cells Not Reportable Ur Squamous Epith Cells 0-5 (0-5) /hpf Urine Bacteria Occasional (FEW) /hpf Urine Mucus Not seen (FEW) /hpf Meds: Medications Generic Name Dose Route Start Last Admin Trade Name Freq PRN Reason Stop Dose Admin Sodium Chloride 10 ml 05/20/18 13:53 05/20/18 13:55 Saline Flush FLUSH 10 ml ASDIRECTED PRN Administration Keep Vein Open Discontinued Medications Generic Name Dose Route Start Last Admin Trade Name Freq PRN Reason Stop Dose Admin Ondansetron HCl 4 mg 05/20/18 14:07 05/20/18 14:10 Zofran IVPUSH 05/20/18 14:08 4 mg ONETIME ONE Administration - Re-Assessments/Exams Free Text/Narrative Re-Assessment/Exam: 05/20/18 15:52 A stroke alert was called. The patient's last time know well was today at noon. I ordered an IV saline lock, EKG, CT of her head, labs and a UA. Her EKG shows a sinus bradycardia. She has flattened T waves in the lateral leads and Q waves in the anterior leads. Her head CT shows senescent change. Incidental sinus finding. 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 No acute intracranial abnormality is appreciated. 05/20/18 16:16 Her CBC and CMP look good. Her troponin is negative. Her UA shows no UTI. 05/20/18 16:17 Her PT and PTT look good. She is now able to talk and she says she has a left sided headache. She said she had a headache earlier and that is why she could not talk. I did a sed rate and it was 35. She says she has blurred vision in the left eye. I examined her eye and I do not see a problem at this time. I feel she needs to be admitted. I called Dr Zuñiga and he will come talk with the patient and her daughter. 05/20/18 16:41 Dr Zuñiga accepted the patient. Departure - Departure Time of Disposition: 16:45 Disposition: Admitted As Inpatient 64 Condition: Fair Clinical Impression: TIA (transient ischemic attack), Vision changes Headache Qualifiers: Headache type: unspecified Headache chronicity pattern: acute headache Intractability: not intractable Qualified Code(s): R51 - Headache - Discharge Information Referrals: Jay Kowalski MD [Primary Care Provider] - Forms: ED Department Discharge - My Orders Last 24 Hours: My Active Orders 05/20/18 13:53 Cardiac Monitoring [RC] . DIRECTED Sodium Chloride 0.9% [Saline Flush] 10 ml FLUSH ASDIRECTED PRN Peripheral IV Insertion Adult [OM.PC] Stat 05/20/18 13:54 EKG Documentation Completion [RC] STAT Oxygen Therapy [RC] PRN Peripheral IV Care [RC] . DIRECTED - Assessment/Plan Last 24 Hours: My Active Orders 05/20/18 13:53 Cardiac Monitoring [RC] . DIRECTED Sodium Chloride 0.9% [Saline Flush] 10 ml FLUSH ASDIRECTED PRN Peripheral IV Insertion Adult [OM.PC] Stat 05/20/18 13:54 EKG Documentation Completion [RC] STAT Oxygen Therapy [RC] PRN Peripheral IV Care [RC] . DIRECTED
[2018-05-20] MEDS ORDERED: hydrALAZINE 20 MG/ML SDV IVPUSH PRN (18:01)
[2018-05-20] MEDS ORDERED: Metoprolol Tartrate 5 MG/5 ML SDV IVPUSH PRN (18:01)
[2018-05-20] MEDS ORDERED: LORazepam 2 MG/ML SDV IVPUSH PRN (18:01)
[2018-05-20] MEDS ORDERED: Acetaminophen/HYDROcodone 325-5 MG Tab PO PRN (18:02)
[2018-05-20] MEDS ORDERED: Acetaminophen 325 MG Tab PO PRN (18:02)
[2018-05-20] MEDS ORDERED: Docusate Sodium 100 MG Cap PO PRN (18:02)
[2018-05-20] MEDS ORDERED: Ondansetron 4 MG/2 ML SDV IV PRN (18:02)
[2018-05-20] MEDS ORDERED: HYDROmorphone 1 MG/ML Syringe IVPUSH PRN (18:02)
[2018-05-20] MEDS ORDERED: Albuterol/Ipratropium 3.0-0.5 MG/3 ML Neb Soln NEB PRN (18:02)
[2018-05-20] MEDS ORDERED: Polyethylene Glycol 3350 Powder 17 GM Packet PO PRN (18:02)
[2018-05-20] MEDS ORDERED: LORazepam 2 MG/ML SDV IV PRN (18:02)
[2018-05-20] MEDS ORDERED: Bisacodyl 5 MG Tab PO PRN (18:02)
[2018-05-20] MEDS ORDERED: 50% Dextrose in Water 50 ML Syringe IVPUSH PRN (18:16)
[2018-05-20] MEDS: Lisinopril 20 MG Tab PO SCH (21:26)
[2018-05-20] MEDS: Carvedilol 12.5 MG Tab PO SCH (21:26)
[2018-05-20] MEDS: Simvastatin 20 MG Tab PO SCH (21:26)
[2018-05-20] MEDS: Hydrocortisone 1% Crm 30 GM Tube TOP SCH (21:27)
[2018-05-20] MEDS: Nystatin Crm 30 GM Tube TOP SCH (21:28)
[2018-05-20] MEDS: Insulin Lispro 100 Units/ML 3 ML Vial SUBCUT SCH (21:31)
--- NOTE | 2018-05-20 23:53 | PCM.HP ---
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 Depression and Obesity Class II who comes in for evaluation of a possible stroke. Her daughter who went and joined her for lunch, noticed she had trouble speaking and saying sensible words. She also reports having a headache. Her last known well was about 1200 today. When she presented to ED, she could not speak but able to move all her extremities. She was able to get around and stand up. Additionally , she was not able to answer questions but could follow commands. Her initial work up in ED shows a CBC remarkable for MCH of 25.3, MCHC of 30.7, Platelet of 115, Monocyte # of 0.66 and ESR of 35. Her Chemistry is significant for BS of 118, Albumin of 3.3. Her UA is not suggestive of UTI. Head CT scan report reads senescent change. 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 Retention cysts, 1.3 cm in the sphenoid sinus. No acute intra-cranial abnormality is appreciated. Patient is being admitted for further evaluation of TIA. She is DNR/DNI. - Related Data Allergies/Adverse Reactions: Allergies Allergy/AdvReac Type Severity Reaction Status Date / Time meperidine HCl [From Demerol] Allergy Vomiting Verified 08/15/17 15:56 metformin Allergy Other Verified 08/15/17 15:57 morphine Allergy Vomiting Verified 08/15/17 15:57 Home Medications: Home Meds Carvedilol 12.5 mg PO BID 05/28/13 [History] Citalopram [Citalopram Hbr] 10 mg PO DAILY 05/28/13 [History] Clopidogrel [Plavix] 75 mg PO DAILY 05/28/13 [History] Furosemide [Lasix] 40 mg PO BID 05/28/13 [History] Insulin Aspart [NovoLOG] 9 units SUBCUT TIDAC 05/28/13 [History] Insulin Glarg,Human.Rec.Analog [Lantus] 12 units SQ 1700 05/28/13 [History] Insulin Glarg,Human.Rec.Analog [Lantus] 40 units SQ 0800 05/28/13 [History] Levothyroxine 25 mcg PO DAILY 05/28/13 [History] Lisinopril [Zestril] 20 mg PO Q12HR 05/28/13 [History] Omeprazole 40 mg PO DAILY 05/28/13 [History] atorvaSTATin [Lipitor] 20 mg PO BEDTIME 05/28/13 [History] Acetaminophen [Tylenol] 650 mg PO BID 05/20/18 [History] Diltiazem [Cardizem CD] 120 mg PO DAILY 05/20/18 [History] Multivitamin [Multivitamins] 1 each PO DAILY 05/20/18 [History] Nystatin [Nystatin Crm] 1 gm TOP BID PRN 05/20/18 [History] Spironolactone [Aldactone] 12.5 mg PO DAILY 05/20/18 [History] Past Medical History Cardiovascular History: Reports: Bypass, High Cholesterol, Hypertension, DC, Stents Gastrointestinal History: Reports: [employer] History: Reports: Musculoskeletal History: Reports: Back Pain, Chronic, Osteoarthritis, Osteoporosis Neurological History: Reports: Other (See Below) Other Neuro History: 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 Psychiatric History: Reports: Depression Endocrine/Metabolic History: Reports: Diabetes, Type II, Obesity/BMI 30+ - Past Surgical History Cardiovascular Surgical History: Reports: Coronary Artery Bypass Social & Family History - Family History Family Medical History: Noncontributory - Tobacco Use Smoking Status *Q: Never Smoker - Caffeine Use Caffeine Use: Reports: Coffee - Recreational Drug Use Recreational Drug Use: No - Living Situation & Occupation Living situation: Reports: , Extended Care Facility (Currently living at [facility] Occupation: Retired H&P Review of Systems - Review of Systems: Review Of Systems: See Below General: Reports: Other (Could not speak right or talk). Denies: Fever, Chills , Malaise, Weakness, Fatigue HEENT: Reports: No Symptoms Pulmonary: Denies: Shortness of Breath Cardiovascular: Denies: Chest Pain, Dyspnea on Exertion, Lightheadedness Gastrointestinal: Denies: Abdominal Pain, Nausea, Vomiting Genitourinary: Reports: No Symptoms Musculoskeletal: Reports: No Symptoms Skin: Denies: Cyanosis, Mottled, Pallor, Diaphoresis, Bruising, Erythema Psychiatric: Denies: Depression, Anxiety, Agitation, Hallucinations, Suicidal Ideation Neurological: Reports: Headache, Change in Speech. Denies: Difficulty Walking, Weakness, Gait Disturbance Hematologic/Lymphatic: Reports: No Symptoms Immunologic: Reports: No Symptoms Exam - Exam Exam: See Below - Vital Signs Vital Signs: Last Vital Signs Temp 36.9 C 05/20/18 21:08 Pulse 68 05/20/18 21:26 Resp 18 05/20/18 21:08 BP 158/61 H 05/20/18 21: Pulse Ox 96 05/20/18 21:08 Weight: 94.574 kg - Exam General: Alert, Oriented, Cooperative HEENT: Conjunctiva Clear, EACs Clear, EOMI, Hearing Intact, Mucosa Moist & [place] , Nares Patent, Normal Nasal Septum, Posterior Pharynx Clear, Pupils Equal, Pupils Reactive Neck: Supple, Trachea Midline Lungs: Normal Respiratory Effort Cardiovascular: Regular Rate, Regular Rhythm GI/Abdominal Exam: Normal Bowel Sounds, Soft, Non-Tender, No Organomegaly, No Distention, No Abnormal Bruit, No Mass, Other (Obese) (Female) Exam: Deferred Rectal (Female) Exam: Deferred Back Exam: Normal Inspection, Decreased Range of Motion Extremities: Normal Inspection, Normal Range of Motion, Non-Tender, No Pedal Edema, Normal Capillary Refill Peripheral Pulses: 2+: Posterior Tibial (L), Posterior Tibial (R), Dorsalis Pedis (L), Dorsalis Pedis (R) Skin: Warm, Dry, Intact Neuro Extensive - Mental Status: Normal Cognition, Memory Intact Neuro Extensive - Motor, Sensory, Reflexes: CN II-XII Intact (grossly intact), Abnormal Gait Psychiatric: Alert, Normal Affect, Normal Mood - Patient Data Lab Results Last 24 hrs: Laboratory Results - last 24 hr 05/20/18 05/20/18 05/20/18 Range/Units 13:53 13:55 13:55 WBC 7.04 (3.98-10.04) K/mm3 RBC 4.70 (3.98-5.22) M/mm3 Hgb 11.9 (11.2-15.7) gm/L Hct 38.8 (34.1-44.9) % MCV 82.6 (79.4-94.8) fl MCH 25.3 L (25.6-32.2) pg MCHC 30.7 L (32.2-35.5) g/dl RDW Std Deviation 44.7 (36.4-46.3) fL Plt Count 115 L (182-369) K/mm3 MPV 11.6 (9.4-12.3) fl Neut % (Auto) 58.8 (34.0-71.1) % Lymph % (Auto) 28.6 (19.3-51.7) % [place] % (Auto) 9.4 (4.7-12.5) % Eos % (Auto) 2.8 (0.7-5.8) Baso % (Auto) 0.4 (0.1-1.2) % Neut # (Auto) 4.14 (1.56-6.13) K/mm3 Lymph # (Auto) 2.01 (1.18-3.74) K/mm3 [place] # (Auto) 0.66 H (0.24-0.36) K/mm3 Eos # (Auto) 0.20 (0.04-0.36) K/mm3 Baso # (Auto) 0.03 (0.01-0.08) K/mm3 ESR (0-20) mm/hr PT (9.5-12.1) SECONDS INR APTT (24-31) SECONDS Sodium 138 (136-145) mEq/L Potassium 3.6 (3.5-5.1) mEq/L Chloride 99 (98-107) mEq/L Carbon Dioxide 30 (21-32) mEq/L Anion Gap 12.6 (5-15) BUN 15 (7-18) mg/dL Creatinine 1.0 (0.55-1.02) mg/dL Est Cr Clr Drug Dosing 35.70 mL/min Estimated GFR (MDRD) 52 (>60) mL/min BUN/Creatinine Ratio 15.0 (14-18) Glucose 97 (83-115) mg/dL POC Glucose 118 H (83-110) mg/dL Calcium 9.0 (8.5-10.1) mg/dL Total Bilirubin 0.2 (0.2-1.0) mg/dL AST 24 (15-37) U/L ALT 29 (14-59) U/L Alkaline Phosphatase 94 (46-116) U/L Troponin I < 0.017 (0.00-0.056) ng/mL Total Protein 7.4 (6.4-8.2) g/dl Albumin 3.3 L (3.4-5.0) g/dl Globulin 4.1 gm/dL Albumin/Globulin Ratio 0.8 L (1-2) Urine Color (Yellow) Urine Appearance (Clear) Urine pH (5.0-8.0) Ur Specific [place] (1.005-1.030) Urine Protein (Negative) Urine Glucose (UA) (Negative) Urine Ketones (Negative) Urine Occult Blood (Negative) Urine Nitrite (Negative) Urine Bilirubin (Negative) Urine Urobilinogen (0.2-1.0) Ur Leukocyte Esterase (Negative) Urine RBC (0-5) /hpf Urine WBC (0-5) /hpf Ur Epithelial Cells Ur Squamous Epith Cells (0-5) /hpf Urine Bacteria (FEW) /hpf Urine Mucus (FEW) /hpf MRSA (PCR) 05/20/18 05/20/18 05/20/18 Range/Units 13:55 14:25 14:50 WBC (3.98-10.04) K/mm3 RBC (3.98-5.22) M/mm3 Hgb (11.2-15.7) gm/L Hct (34.1-44.9) % MCV (79.4-94.8) fl MCH (25.6-32.2) pg MCHC (32.2-35.5) g/dl RDW Std Deviation (36.4-46.3) fL Plt Count (182-369) K/mm3 MPV (9.4-12.3) fl Neut % (Auto) (34.0-71.1) % Lymph % (Auto) (19.3-51.7) % [place] % (Auto) (4.7-12.5) % Eos % (Auto) (0.7-5.8) Baso % (Auto) (0.1-1.2) % Neut # (Auto) (1.56-6.13) K/mm3 Lymph # (Auto) (1.18-3.74) K/mm3 [place] # (Auto) (0.24-0.36) K/mm3 Eos # (Auto) (0.04-0.36) K/mm3 Baso # (Auto) (0.01-0.08) K/mm3 ESR 35 H (0-20) mm/hr PT 11.1 (9.5-12.1) SECONDS INR 1.02 APTT 28 (24-31) SECONDS Sodium (136-145) mEq/L Potassium (3.5-5.1) mEq/L Chloride (98-107) mEq/L Carbon Dioxide (21-32) mEq/L Anion Gap (5-15) BUN (7-18) mg/dL Creatinine (0.55-1.02) mg/dL Est Cr Clr Drug Dosing mL/min Estimated GFR (MDRD) (>60) mL/min BUN/Creatinine Ratio (14-18) Glucose (83-115) mg/dL POC Glucose (83-110) mg/dL Calcium (8.5-10.1) mg/dL Total Bilirubin (0.2-1.0) mg/dL AST (15-37) U/L ALT (14-59) U/L Alkaline Phosphatase (46-116) U/L Troponin I (0.00-0.056) ng/mL Total Protein (6.4-8.2) g/dl Albumin (3.4-5.0) g/dl Globulin gm/dL Albumin/Globulin Ratio (1-2) Urine Color Yellow (Yellow) Urine Appearance Clear (Clear) Urine pH 6.0 (5.0-8.0) Ur Specific [place] 1.015 (1.005-1.030) Urine Protein Negative (Negative) Urine Glucose (UA) Negative (Negative) Urine Ketones Negative (Negative) Urine Occult Blood Negative (Negative) Urine Nitrite Negative (Negative) Urine Bilirubin Negative (Negative) Urine Urobilinogen 0.2 (0.2-1.0) Ur Leukocyte Esterase Negative (Negative) Urine RBC 0-5 (0-5) /hpf Urine WBC 0-5 (0-5) /hpf Ur Epithelial Cells Not Reportable Ur Squamous Epith Cells 0-5 (0-5) /hpf Urine Bacteria Occasional (FEW) /hpf Urine Mucus Not seen (FEW) /hpf MRSA (PCR) 05/20/18 05/20/18 05/20/18 Range/Units 18:00 18:36 21:29 WBC (3.98-10.04) K/mm3 RBC (3.98-5.22) M/mm3 Hgb (11.2-15.7) gm/L Hct (34.1-44.9) % MCV (79.4-94.8) fl MCH (25.6-32.2) pg MCHC (32.2-35.5) g/dl RDW Std Deviation (36.4-46.3) fL Plt Count (182-369) K/mm3 MPV (9.4-12.3) fl Neut % (Auto) (34.0-71.1) % Lymph % (Auto) (19.3-51.7) % [place] % (Auto) (4.7-12.5) % Eos % (Auto) (0.7-5.8) Baso % (Auto) (0.1-1.2) % Neut # (Auto) (1.56-6.13) K/mm3 Lymph # (Auto) (1.18-3.74) K/mm3 [place] # (Auto) (0.24-0.36) K/mm3 Eos # (Auto) (0.04-0.36) K/mm3 Baso # (Auto) (0.01-0.08) K/mm3 ESR (0-20) mm/hr PT (9.5-12.1) SECONDS INR APTT (24-31) SECONDS Sodium (136-145) mEq/L Potassium (3.5-5.1) mEq/L Chloride (98-107) mEq/L Carbon Dioxide (21-32) mEq/L Anion Gap (5-15) BUN (7-18) mg/dL Creatinine (0.55-1.02) mg/dL Est Cr Clr Drug Dosing mL/min Estimated GFR (MDRD) (>60) mL/min BUN/Creatinine Ratio (14-18) Glucose (83-115) mg/dL POC Glucose 110 159 H (83-110) mg/dL Calcium (8.5-10.1) mg/dL Total Bilirubin (0.2-1.0) mg/dL AST (15-37) U/L ALT (14-59) U/L Alkaline Phosphatase (46-116) U/L Troponin I (0.00-0.056) ng/mL Total Protein (6.4-8.2) g/dl Albumin (3.4-5.0) g/dl Globulin gm/dL Albumin/Globulin Ratio (1-2) Urine Color (Yellow) Urine Appearance (Clear) Urine pH (5.0-8.0) Ur Specific [place] (1.005-1.030) Urine Protein (Negative) Urine Glucose (UA) (Negative) Urine Ketones (Negative) Urine Occult Blood (Negative) Urine Nitrite (Negative) Urine Bilirubin (Negative) Urine Urobilinogen (0.2-1.0) Ur Leukocyte Esterase (Negative) Urine RBC (0-5) /hpf Urine WBC (0-5) /hpf Ur Epithelial Cells Ur Squamous Epith Cells (0-5) /hpf Urine Bacteria (FEW) /hpf Urine Mucus (FEW) /hpf MRSA (PCR) Negative Result Diagrams: 05/20/18 13:55 05/20/18 13:55 EKG INTERPRETATION EKG Date: 05/20/18 Time: 14:11 Rhythm: Other (Sonus Bradycardia) Rate (Beats/Min): 51 [place]: Normal P-Wave: Present QRS: Normal ST-T: Other (flat t wave in lateral leads) QT: Normal Problem List Initiated/Reviewed/Updated: Yes Orders Last 24hrs: Active Orders 24 hr Category Date Time Status Admission Status [Patient Status] [ADT] Routine ADT 05/20/18 16:53 Active Accu Check [Blood Glucose Check, Bedside] [RC] Care 05/20/18 18:16 Active QIDACANDBED Antiembolic Devices [RC] 10,22 Care 05/20/18 18:03 Active Cardiac Monitoring [RC] . DIRECTED Care 05/20/18 13:53 Active Cardiac Monitoring [RC] CONTINUOUS Care 05/20/18 18:02 Active Height and Weight [RC] 04 Care 05/20/18 18:02 Active Intake and Output [RC] 04,16 Care 05/20/18 18:02 Active Oxygen Therapy [RC] PRN Care 05/20/18 18:02 Active RT Aerosol Therapy [RC] ASDIRECTED Care 05/20/18 18:04 Active Up With Assistance [RC] ASDIRECTED Care 05/20/18 18:02 Active Up ad Tiana [RC] ASDIRECTED Care 05/20/18 18:02 Active VTE/DVT Education [RC] Care 05/20/18 18:02 Active Vital Signs [RC] Q4HR Care 05/20/18 18:02 Active Consult to Case Management/Supervisor Whipped Topping [CONS] Cons 05/20/18 18:02 Active Routine Consult to Spiritual Care [CONS] Routine Cons 05/20/18 18:02 Active OT Evaluation and Treatment [CONS] Routine Cons 05/20/18 18:02 Active PT Evaluation and Treatment [CONS] Routine Cons 05/20/18 18:02 Active PROFILER OPERATOR Evaluation and Treatment [CONS] Routine Cons 05/20/18 18:02 Active Consistent Carbohydrate Diet [DIET] Diet 05/20/18 Dinner Active Heart Healthy Diet [DIET] Diet 05/20/18 Dinner Active Brain wo Cont [MR] Routine Exams 05/21/18 09:00 Ordered Carotid Comp [US] Routine Exams 05/21/18 09:00 Ordered Echo Comp wo Cont [US] Routine Exams 05/21/18 09:00 Ordered A1C [GLYCOSYLATED HEMOGLOBIN,HGBA1C] [CHEM] AM Lab 05/21/18 05:11 Ordered BASIC METABOLIC PANEL,BMP [CHEM] AM Lab 05/21/18 05:11 Ordered BASIC METABOLIC PANEL,BMP [CHEM] AM Lab 05/22/18 05:11 Ordered BASIC METABOLIC PANEL,BMP [CHEM] AM Lab 05/23/18 05:11 Ordered CBC WITH AUTO DIFF [HEME] AM Lab 05/21/18 05:11 Ordered LIPID PANEL [CHEM] AM Lab 05/21/18 05:11 Ordered MAGNESIUM [CHEM] AM Lab 05/21/18 05:11 Ordered MAGNESIUM [CHEM] AM Lab 05/22/18 05:11 Ordered MAGNESIUM [CHEM] AM Lab 05/23/18 05:11 Ordered Acetaminophen [Tylenol] Med 05/20/18 22:45 Active 650 mg PO BID Acetaminophen [Tylenol] Med 05/20/18 18:02 Active 650 mg PO Q4H PRN Acetaminophen/HYDROcodone [[place] 325-5 MG] Med 05/20/18 18:02 Active 1 tab PO Q4H PRN Albuterol/Ipratropium [DuoNeb 3.0-0.5 MG/3 ML] Med 05/20/18 18:02 Active 3 ml NEB Q4H PRN Bisacodyl [Dulcolax] Med 05/20/18 18:02 Active 5 mg PO DAILY PRN Carvedilol [Coreg] Med 05/20/18 21:00 Active 25 mg PO BID Citalopram [Celexa] Med 05/21/18 09:00 Active 10 mg PO DAILY Clopidogrel [Plavix] Med 05/21/18 09:00 Active 75 mg PO DAILY Dextrose 50% in Water Med 05/20/18 18:16 Active 50 ml IVPUSH ASDIRECTED PRN Diltiazem [Cardizem CD] Med 05/21/18 09:00 Active 120 mg PO DAILY Docusate Sodium [Colace] Med 05/20/18 18:02 Active 100 mg PO BID PRN Docusate Sodium/Sennosides [Senna Plus] Med 05/20/18 18:02 Active 1 tab PO BID PRN Furosemide [Lasix] Med 05/21/18 09:00 Active 20 mg PO DAILY HYDROmorphone [Dilaudid] Med 05/20/18 18:02 Active 0.25 mg IVPUSH Q2H PRN Hydrocortisone [Hydrocortisone 1% Crm] Med 05/20/18 21:00 Active 0.001 gm TOP BID Insulin Glarg,Human.Rec.Analog [LantUS] Med 05/21/18 17:00 Active 12 unit SUBCUT DAILY@1700 Insulin Glarg,Human.Rec.Analog [LantUS] Med 05/21/18 08:00 Active 40 unit SUBCUT DAILY@0800 Insulin Lispro [HumaLOG] Med 05/20/18 22:00 Active See Protocol SUBCUT QIDACANDBED LORazepam [Ativan] Med 05/20/18 18:02 Active 0.25 mg IV Q6H PRN LORazepam [Ativan] Med 05/20/18 18:01 Active 2 mg IVPUSH Q4H PRN Levothyroxine Med 05/21/18 09:00 Active 25 mcg PO DAILY Lisinopril [Prinivil] Med 05/20/18 21:00 Active 20 mg PO Q12HR Metoprolol Tartrate [Lopressor] Med 05/20/18 18:01 Active 5 mg IVPUSH Q4H PRN Multivitamins,Therapeutic [Thera] Med 05/21/18 09:00 Active 1 each PO DAILY Nystatin [Nystatin Crm] Med 05/20/18 21:00 Active 0 gm TOP BID Ondansetron [Zofran] Med 05/20/18 18:02 Active 4 mg IV Q6H PRN Pantoprazole [ProTONIX] Med 05/21/18 07:00 Active 40 mg PO DAILY@0700 Pharmacy to Dose - Magnesium R [Pharmacy to Dose - Med 05/20/18 18:15 Pending Magnesium Replacement] 1 dose .XX ASDIRECTED Pharmacy to Dose - Potassium R [Pharmacy to Dose - Med 05/20/18 18:15 Pending Potassium Replacement] 1 dose .XX ASDIRECTED Polyethylene Glycol 3350 [MiraLAX] Med 05/20/18 18:02 Active 17 gm PO DAILY PRN Simvastatin [Zocor] Med 05/20/18 21:00 Active 20 mg PO BEDTIME Sodium Chloride 0.9% [Saline Flush] Med 05/20/18 13:53 Active 10 ml FLUSH ASDIRECTED PRN Spironolactone [Aldactone] Med 05/21/18 09:00 Active 12.5 mg PO DAILY hydrALAZINE [Apresoline] Med 05/20/18 18:01 Active 10 mg IVPUSH Q4H PRN Peripheral IV Insertion Adult [OM.PC] Stat Oth 05/20/18 13:53 Ordered ROSSY Hose [Antiembolic Hose] [OM.PC] Routine Oth 05/20/18 20:11 Ordered Resuscitation Status Routine Resus Stat 05/20/18 17:54 Ordered Medication Orders Acetaminophen (Tylenol) 650 mg PO Q4H PRN PRN Reason: Pain (Mild 1-3)/fever Acetaminophen (Tylenol) 650 mg PO BID [facility] Hydrocodone Bitart/Acetaminophen ([place] 325-5 Mg) 1 tab PO Q4H PRN PRN Reason: Pain (moderate 4-6) Albuterol/Ipratropium (Duoneb 3.0-0.5 Mg/3 Ml) 3 ml NEB Q4H PRN PRN Reason: Shortness Of Breath/wheezing Bisacodyl (Dulcolax) 5 mg PO DAILY PRN PRN Reason: Constipation Carvedilol (Coreg) 25 mg PO BID [facility] Last Admin: 05/20/18 21:26 Dose: 25 mg Citalopram Hydrobromide (Celexa) 10 mg PO DAILY [facility] Clopidogrel Bisulfate (Plavix) 75 mg PO DAILY [facility] Dextrose/Water (Dextrose 50% In Water) 50 ml IVPUSH ASDIRECTED PRN PRN Reason: Hypoglycemia Diltiazem HCl (Cardizem Cd) 120 mg PO DAILY [facility] Docusate Sodium (Colace) 100 mg PO BID PRN PRN Reason: Constipation Furosemide (Lasix) 20 mg PO DAILY [facility] Hydralazine HCl (Apresoline) 10 mg IVPUSH Q4H PRN PRN Reason: Hypertension Hydrocortisone (Hydrocortisone 1% Crm) 0.001 gm TOP BID [facility] Last Admin: 05/20/18 21:27 Dose: Not Given Hydromorphone HCl (Dilaudid) 0.25 mg IVPUSH Q2H PRN PRN Reason: Pain (severe 7-10) Insulin Glargine (Lantus) 12 unit SUBCUT DAILY@1700 [facility] Insulin Glargine (Lantus) 40 unit SUBCUT DAILY@0800 [facility] Insulin Human Lispro (Humalog) 0 unit SUBCUT QIDACANDBED [facility]; Protocol Last Admin: 05/20/18 21:31 Dose: Not Given Levothyroxine Sodium (Levothyroxine) 25 mcg PO DAILY [facility] Lisinopril (Prinivil) 20 mg PO Q12HR [facility] Last Admin: 05/20/18 21:26 Dose: 20 mg Lorazepam (Ativan) 2 mg IVPUSH Q4H PRN PRN Reason: Seizures Lorazepam (Ativan) 0.25 mg IV Q6H PRN PRN Reason: Anxiety Magnesium Sulfate (Pharmacy To Dose - Magnesium Replacement) 1 dose .XX ASDIRECTED [facility] Metoprolol Tartrate (Lopressor) 5 mg IVPUSH Q4H PRN PRN Reason: Tachycardia Multivitamins (Thera) 1 each PO DAILY [facility] Nystatin (Nystatin Crm) 0 gm TOP BID [facility] Last Admin: 05/20/18 21:28 Dose: Not Given Ondansetron HCl (Zofran) 4 mg IV Q6H PRN PRN Reason: Nausea/Vomiting Pantoprazole Sodium (Protonix) 40 mg PO DAILY@0700 [facility] Polyethylene Glycol (Miralax) 17 gm PO DAILY PRN PRN Reason: Constipation Potassium Chloride (Pharmacy To Dose - Potassium Replacement) 1 dose .XX ASDIRECTED [facility] Senna/Docusate Sodium (Senna Plus) 1 tab PO BID PRN PRN Reason: Constipation Simvastatin (Zocor) 20 mg PO BEDTIME [facility] Last Admin: 05/20/18 21:26 Dose: 20 mg Sodium Chloride (Saline Flush) 10 ml FLUSH ASDIRECTED PRN PRN Reason: Keep Vein Open Last Admin: 05/20/18 13:55 Dose: 10 ml Spironolactone (Aldactone) 12.5 mg PO DAILY [facility] Assessment/Plan Comment:: Assessment/Plan: Acute: TIA - Unclear in etiology - Suspect cardio embolic stroke; HR 51 (bradycardia) - Risk Factors: HTN, HLD, Carotid Atherosclerosis and DM2 - Head CT scan: senescent change. 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 Retention cysts, 1.3 cm in the sphenoid sinus. No acute intra-cranial abnormality is appreciated. 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
[2018-05-21] MEDS: Acetaminophen 325 MG Tab PO SCH ×3 (04:13→20:25)
[2018-05-21] MEDS: Pantoprazole 40 MG Tab.CR PO SCH (06:29)
[2018-05-21] MEDS: Spironolactone 25 MG Tab PO SCH (06:29)
[2018-05-21] MEDS: Furosemide 20 MG Tab PO SCH (06:29)
[2018-05-21 07:27] LABS: HEMOGLOBIN A1C 8.6 % (4.50-6.20)
[2018-05-21] MEDS: Insulin Lispro 100 Units/ML 3 ML Vial SUBCUT SCH ×4 (07:37→22:18)
[2018-05-21] MEDS: Diltiazem 120 MG Cap.CD PO SCH (08:49)
[2018-05-21] MEDS: Levothyroxine 25 MCG Tab PO SCH (08:49)
[2018-05-21] MEDS ORDERED: Furosemide 20 MG Tab PO SCH (09:00)
[2018-05-21] MEDS ORDERED: Spironolactone 25 MG Tab PO SCH (09:00)
[2018-05-21] MEDS: Citalopram 20 MG Tab PO SCH (09:03)
[2018-05-21] MEDS: Clopidogrel 75 MG Tab PO SCH (09:04)
[2018-05-21] MEDS: Lisinopril 20 MG Tab PO SCH ×2 (09:04→20:28)
[2018-05-21] MEDS: Multivitamins,Therapeutic Tab PO SCH (09:05)
[2018-05-21] MEDS: Insulin Glarg,Human.Rec.Analog 100 UNIT/ML ML SUBCUT SCH (09:05)
[2018-05-21] MEDS: Carvedilol 12.5 MG Tab PO SCH ×2 (09:05→20:27)
[2018-05-21] MEDS: Nystatin Crm 30 GM Tube TOP SCH ×2 (09:07→20:22)
[2018-05-21] MEDS: Hydrocortisone 1% Crm 30 GM Tube TOP SCH ×2 (09:35→20:25)
--- NOTE | 2018-05-21 11:37 | MR ---
MRI brain Technique: T1 sagittal; T2, T2 FLAIR, T1, gradient echo and diffusion axial; T1-weighted coronal and gradient echo coronal images were obtained. Comparison: Previous head CT exam of 05/20/18. Findings: Ventricles along the basal cisterns and sulci over the convexities are moderately prominent. No acute diffusion abnormalities are seen. Bilateral jason holes are again noted. Sinus finding is seen inferiorly most likely due to retention cyst measuring 1.0 cm. Normal signal void is seen within the major cerebral arteries within the skull base. Diffuse increased signal is noted within the subcortical and periventricular white matter compatible with small vessel ischemic demyelination change. No other abnormal signal is seen within the brain parenchyma. No midline shift or mass effect is present. Impression: 1. Senescent change as noted above. 2. No acute diffusion abnormalities are appreciated. 3. Other incidental findings. Diagnostic code #2
--- NOTE | 2018-05-21 13:06 | US ---
Carotid ultrasound: Duplex and color flow imaging was obtained of the carotid arteries. Mild amount of plaque identified within the right carotid bulb and extending into the internal carotid artery. Right side: CCA has a peak systolic velocity of 0.95 m/sec. ICA has a peak systolic velocity of 1.09 m/sec and peak end-diastolic velocity of 0.17 m/sec. ECA has a peak systolic velocity of 1.43 m/sec. ICA/CCA ratio is 1.1. Vertebral artery has a peak systolic velocity of 0.88. Left side: CCA has a peak systolic velocity of 1.42 m/sec. ICA has a peak systolic velocity of 0.91 m/sec and peak end-diastolic velocity of 0.18 m/sec. ECA has a peak systolic velocity of 1.34 m/sec. ICA/CCA ratio is 0.6. Vertebral artery not visualized Impression: 1. Mild amount of plaque within the right side. 2. Velocity measurements correspond to stenosis in the range of 1-49% within both internal carotid arteries. 3. Left vertebral artery not visualized, but normal signal void is seen within the distal left vertebral artery on previous MRI. Diagnostic code #2
--- NOTE | 2018-05-21 16:46 | PCM.PN ---
- General Info Date of Service: 05/21/18 Functional Status: Reports: Pain Controlled, Tolerating Diet, Ambulating, Urinating - Review of Systems General: Reports: No Symptoms HEENT: Reports: No Symptoms Pulmonary: Reports: No Symptoms Cardiovascular: Reports: No Symptoms Gastrointestinal: Reports: No Symptoms Genitourinary: Reports: No Symptoms Musculoskeletal: Reports: No Symptoms Skin: Reports: No Symptoms Neurological: Reports: No Symptoms Psychiatric: Reports: No Symptoms - Patient Data Vitals - Most Recent: Last Vital Signs Temp 37.0 C 05/21/18 15:19 Pulse 58 L 05/21/18 15:19 Resp 16 05/21/18 15:19 BP 157/51 H 05/21/18 15:19 Pulse Ox 94 L 05/21/18 15:19 Weight - Most Recent: 93.531 kg I&O - Last 24 Hours: Intake & Output 05/21/18 05/21/18 05/21/18 06:59 14:59 22:59 Intake Total 600 660 200 Output Total 950 Balance -350 660 200 Lab Results Last 24 Hours: Laboratory Results - last 24 hr 05/20/18 05/20/18 05/20/18 Range/Units 18:00 18:36 21:29 WBC (3.98-10.04) K/mm3 RBC (3.98-5.22) M/mm3 Hgb (11.2-15.7) gm/L Hct (34.1-44.9) % MCV (79.4-94.8) fl MCH (25.6-32.2) pg MCHC (32.2-35.5) g/dl RDW Std Deviation (36.4-46.3) fL Plt Count (182-369) K/mm3 MPV (9.4-12.3) fl Neut % (Auto) (34.0-71.1) % Lymph % (Auto) (19.3-51.7) % [place] % (Auto) (4.7-12.5) % Eos % (Auto) (0.7-5.8) Baso % (Auto) (0.1-1.2) % Neut # (Auto) (1.56-6.13) K/mm3 Lymph # (Auto) (1.18-3.74) K/mm3 [place] # (Auto) (0.24-0.36) K/mm3 Eos # (Auto) (0.04-0.36) K/mm3 Baso # (Auto) (0.01-0.08) K/mm3 Sodium (136-145) mEq/L Potassium (3.5-5.1) mEq/L Chloride (98-107) mEq/L Carbon Dioxide (21-32) mEq/L Anion Gap (5-15) BUN (7-18) mg/dL Creatinine (0.55-1.02) mg/dL Est Cr Clr Drug Dosing mL/min Estimated GFR (MDRD) (>60) mL/min BUN/Creatinine Ratio (14-18) Glucose (83-115) mg/dL POC Glucose 110 159 H (83-110) mg/dL Hemoglobin A1c (4.50-6.20) % Calcium (8.5-10.1) mg/dL Magnesium (1.8-2.4) mg/dl Triglycerides (<150) mg/dL Cholesterol (<200) mg/dL LDL Cholesterol Direct (<100) mg/dL HDL Cholesterol (40-59) mg/dL MRSA (PCR) Negative 05/21/18 05/21/18 05/21/18 Range/Units 05:45 05:45 05:45 WBC 7.34 (3.98-10.04) K/mm3 RBC 4.42 (3.98-5.22) M/mm3 Hgb 11.1 L (11.2-15.7) gm/L Hct 36.6 (34.1-44.9) % MCV 82.8 (79.4-94.8) fl MCH 25.1 L (25.6-32.2) pg MCHC 30.3 L (32.2-35.5) g/dl RDW Std Deviation 44.1 (36.4-46.3) fL Plt Count 197 (182-369) K/mm3 MPV 11.0 (9.4-12.3) fl Neut % (Auto) 58.2 (34.0-71.1) % Lymph % (Auto) 29.6 (19.3-51.7) % [place] % (Auto) 9.8 (4.7-12.5) % Eos % (Auto) 1.9 (0.7-5.8) Baso % (Auto) 0.4 (0.1-1.2) % Neut # (Auto) 4.27 (1.56-6.13) K/mm3 Lymph # (Auto) 2.17 (1.18-3.74) K/mm3 [place] # (Auto) 0.72 H (0.24-0.36) K/mm3 Eos # (Auto) 0.14 (0.04-0.36) K/mm3 Baso # (Auto) 0.03 (0.01-0.08) K/mm3 Sodium 140 (136-145) mEq/L Potassium 3.7 (3.5-5.1) mEq/L Chloride 102 (98-107) mEq/L Carbon Dioxide 29 (21-32) mEq/L Anion Gap 12.7 (5-15) BUN 19 H (7-18) mg/dL Creatinine 1.1 H (0.55-1.02) mg/dL Est Cr Clr Drug Dosing 32.46 mL/min Estimated GFR (MDRD) 47 (>60) mL/min BUN/Creatinine Ratio 17.3 (14-18) Glucose 76 L (83-115) mg/dL POC Glucose (83-110) mg/dL Hemoglobin A1c 8.60 H (4.50-6.20) % Calcium 9.0 (8.5-10.1) mg/dL Magnesium 2.0 (1.8-2.4) mg/dl Triglycerides 117 (<150) mg/dL Cholesterol 123 (<200) mg/dL LDL Cholesterol Direct 72 (<100) mg/dL HDL Cholesterol 37.0 L (40-59) mg/dL MRSA (PCR) 05/21/18 05/21/18 Range/Units 06:32 12:13 WBC (3.98-10.04) K/mm3 RBC (3.98-5.22) M/mm3 Hgb (11.2-15.7) gm/L Hct (34.1-44.9) % MCV (79.4-94.8) fl MCH (25.6-32.2) pg MCHC (32.2-35.5) g/dl RDW Std Deviation (36.4-46.3) fL Plt Count (182-369) K/mm3 MPV (9.4-12.3) fl Neut % (Auto) (34.0-71.1) % Lymph % (Auto) (19.3-51.7) % [place] % (Auto) (4.7-12.5) % Eos % (Auto) (0.7-5.8) Baso % (Auto) (0.1-1.2) % Neut # (Auto) (1.56-6.13) K/mm3 Lymph # (Auto) (1.18-3.74) K/mm3 [place] # (Auto) (0.24-0.36) K/mm3 Eos # (Auto) (0.04-0.36) K/mm3 Baso # (Auto) (0.01-0.08) K/mm3 Sodium (136-145) mEq/L Potassium (3.5-5.1) mEq/L Chloride (98-107) mEq/L Carbon Dioxide (21-32) mEq/L Anion Gap (5-15) BUN (7-18) mg/dL Creatinine (0.55-1.02) mg/dL Est Cr Clr Drug Dosing mL/min Estimated GFR (MDRD) (>60) mL/min BUN/Creatinine Ratio (14-18) Glucose (83-115) mg/dL POC Glucose 77 L 183 H (83-110) mg/dL Hemoglobin A1c (4.50-6.20) % Calcium (8.5-10.1) mg/dL Magnesium (1.8-2.4) mg/dl Triglycerides (<150) mg/dL Cholesterol (<200) mg/dL LDL Cholesterol Direct (<100) mg/dL HDL Cholesterol (40-59) mg/dL MRSA (PCR) Med Orders - Current: Current Medications Acetaminophen (Tylenol) 650 mg PO Q4H PRN PRN Reason: Pain (Mild 1-3)/fever Acetaminophen (Tylenol) 650 mg PO BID [facility]NA Last Admin: 05/21/18 09:04 Dose: Not Given Hydrocodone Bitart/Acetaminophen ([place] 325-5 Mg) 1 tab PO Q4H PRN PRN Reason: Pain (moderate 4-6) Albuterol/Ipratropium (Duoneb 3.0-0.5 Mg/3 Ml) 3 ml NEB Q4H PRN PRN Reason: Shortness Of Breath/wheezing Bisacodyl (Dulcolax) 5 mg PO DAILY PRN PRN Reason: Constipation Carvedilol (Coreg) 25 mg PO BID [facility] Last Admin: 05/21/18 09:05 Dose: 25 mg Citalopram Hydrobromide (Celexa) 10 mg PO DAILY [facility] Last Admin: 05/21/18 09:03 Dose: 10 mg Clopidogrel Bisulfate (Plavix) 75 mg PO DAILY [facility] Last Admin: 05/21/18 09:04 Dose: 75 mg Dextrose/Water (Dextrose 50% In Water) 50 ml IVPUSH ASDIRECTED PRN PRN Reason: Hypoglycemia Diltiazem HCl (Cardizem Cd) 120 mg PO DAILY [facility] Last Admin: 05/21/18 08:49 Dose: 120 mg Docusate Sodium (Colace) 100 mg PO BID PRN PRN Reason: Constipation Furosemide (Lasix) 20 mg PO DAILY@0600 [facility] Last Admin: 05/21/18 06:29 Dose: 20 mg Hydralazine HCl (Apresoline) 10 mg IVPUSH Q4H PRN PRN Reason: Hypertension Hydrocortisone (Hydrocortisone 1% Crm) 0.001 gm TOP BID [facility] Last Admin: 05/21/18 09:35 Dose: Not Given Hydromorphone HCl (Dilaudid) 0.25 mg IVPUSH Q2H PRN PRN Reason: Pain (severe 7-10) Insulin Glargine (Lantus) 12 unit SUBCUT DAILY@1700 [facility] Insulin Glargine (Lantus) 40 unit SUBCUT DAILY@0800 [facility] Last Admin: 05/21/18 09:05 Dose: 40 units Insulin Human Lispro (Humalog) 0 unit SUBCUT QIDACANDBED [facility]; Protocol Last Admin: 05/21/18 12:28 Dose: 1 units Levothyroxine Sodium (Levothyroxine) 25 mcg PO DAILY [facility] Last Admin: 05/21/18 08:49 Dose: 25 mcg Lisinopril (Prinivil) 20 mg PO Q12HR [facility] Last Admin: 05/21/18 09:04 Dose: 20 mg Lorazepam (Ativan) 2 mg IVPUSH Q4H PRN PRN Reason: Seizures Lorazepam (Ativan) 0.25 mg IV Q6H PRN PRN Reason: Anxiety Metoprolol Tartrate (Lopressor) 5 mg IVPUSH Q4H PRN PRN Reason: Tachycardia Multivitamins (Thera) 1 each PO DAILY [facility] Last Admin: 05/21/18 09:05 Dose: 1 each Nystatin (Nystatin Crm) 0 gm TOP BID [facility] Last Admin: 05/21/18 09:07 Dose: 1 applic Ondansetron HCl (Zofran) 4 mg IV Q6H PRN PRN Reason: Nausea/Vomiting Pantoprazole Sodium (Protonix) 40 mg PO DAILY@0700 [facility] Last Admin: 05/21/18 06:29 Dose: 40 mg Polyethylene Glycol (Miralax) 17 gm PO DAILY PRN PRN Reason: Constipation Senna/Docusate Sodium (Senna Plus) 1 tab PO BID PRN PRN Reason: Constipation Simvastatin (Zocor) 20 mg PO BEDTIME [facility] Last Admin: 05/20/18 21:26 Dose: 20 mg Sodium Chloride (Saline Flush) 10 ml FLUSH ASDIRECTED PRN PRN Reason: Keep Vein Open Last Admin: 05/20/18 13:55 Dose: 10 ml Spironolactone (Aldactone) 12.5 mg PO 0600 [facility] Last Admin: 05/21/18 06:29 Dose: 12.5 mg Discontinued Medications Furosemide (Lasix) 20 mg PO DAILY [facility] Magnesium Sulfate (Pharmacy To Dose - Magnesium Replacement) 0 dose .XX ASDIRECTED PRN PRN Reason: RX TO WATCH MAG Ondansetron HCl (Zofran) 4 mg IVPUSH ONETIME ONE Stop: 05/20/18 14:08 Last Admin: 05/20/18 14:10 Dose: 4 mg Potassium Chloride (Pharmacy To Dose - Potassium Replacement) 0 dose .XX ASDIRECTED PRN PRN Reason: RX TO WATCH K Spironolactone (Aldactone) 12.5 mg PO DAILY [facility] - Exam Quality Assessment: DVT Prophylaxis General: Alert, Oriented, Cooperative, No Acute Distress HEENT: Pupils Equal, Pupils Reactive, EOMI Neck: Trachea Midline, No JVD Lungs: Normal Respiratory Effort Cardiovascular: Regular Rate, Regular Rhythm GI/Abdominal Exam: Normal Bowel Sounds, Soft, Non-Tender, No Distention (Female) Exam: Deferred Back Exam: Normal Inspection Extremities: Normal Inspection, Non-Tender, Normal Capillary Refill Skin: Warm Neurological: No New Focal Deficit Psy/Mental Status: Alert, Normal Affect, Normal Mood - Problem List Review Problem List Initiated/Reviewed/Updated: Yes - Plan Plan:: Assessment/Plan: Acute: TIA - Unclear in etiology - Suspect cardio embolic stroke; HR 51 (bradycardia) - Risk Factors: HTN, HLD, Carotid Atherosclerosis and DM2 - Head CT scan: senescent change. 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 Retention cysts, 1.3 cm in the sphenoid sinus. No acute intra-cranial abnormality is appreciated. 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
[2018-05-21] MEDS ORDERED: Insulin Glarg,Human.Rec.Analog 100 UNIT/ML ML SUBCUT SCH (17:00)
[2018-05-21] MEDS: Simvastatin 20 MG Tab PO SCH (20:21)
[2018-05-22] MEDS: Furosemide 20 MG Tab PO SCH (06:27)
[2018-05-22] MEDS: Spironolactone 25 MG Tab PO SCH (06:27)
[2018-05-22] MEDS: Pantoprazole 40 MG Tab.CR PO SCH (06:27)
[2018-05-22] MEDS: Insulin Lispro 100 Units/ML 3 ML Vial SUBCUT SCH ×2 (07:57→12:19)
[2018-05-22] MEDS: Hydrocortisone 1% Crm 30 GM Tube TOP SCH (08:54)
[2018-05-22] MEDS: Nystatin Crm 30 GM Tube TOP SCH (08:54)
[2018-05-22] MEDS: Multivitamins,Therapeutic Tab PO SCH (08:54)
[2018-05-22] MEDS: Levothyroxine 25 MCG Tab PO SCH (08:54)
[2018-05-22] MEDS: Lisinopril 20 MG Tab PO SCH (08:55)
[2018-05-22] MEDS: Carvedilol 12.5 MG Tab PO SCH (08:55)
[2018-05-22] MEDS: Acetaminophen 325 MG Tab PO SCH (08:57)
[2018-05-22] MEDS: Diltiazem 120 MG Cap.CD PO SCH (08:58)
[2018-05-22] MEDS: Citalopram 20 MG Tab PO SCH (08:58)
[2018-05-22] MEDS: Clopidogrel 75 MG Tab PO SCH (08:58)
[2018-05-22] MEDS: Insulin Glarg,Human.Rec.Analog 100 UNIT/ML ML SUBCUT SCH (09:00)
[2018-05-22] MEDS ORDERED: Aspirin 325 MG Tab.EC PO SCH (10:00)
[2018-05-22 12:45] VITALS: BP 129/44
--- NOTE | 2018-05-22 13:29 | PCM.DCSUM1 ---
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 Depression and Obesity Class II who comes in for evaluation of a possible stroke. Her daughter who went and joined her for lunch, noticed she had trouble speaking and saying sensible words. She also reports having a headache. Her last known well was about 1200 today. When she presented to ED, she could not speak but able to move all her extremities. She was able to get around and stand up. Additionally , she was not able to answer questions but could follow commands. Her initial work up in ED shows a CBC remarkable for MCH of 25.3, MCHC of 30.7, Platelet of 115, Monocyte # of 0.66 and ESR of 35. Her Chemistry is significant for BS of 118, Albumin of 3.3. Her UA is not suggestive of UTI. Head CT scan report reads senescent change. 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 Retention cysts, 1.3 cm in the sphenoid sinus. No acute intra-cranial abnormality is appreciated. Patient is being admitted for further evaluation of TIA. She is DNR/DNI. Diagnosis: Stroke: Yes Modified [place] Scale: No Symptoms at All Modified [place] Scale Score: 0 - Discharge Data Discharge Date: 05/22/18 Discharge Disposition: Home, Self-Care 01 Condition: Good - Patient Summary/Data Consults: Consultations 05/20/18 18:02 Consult to Case Management/Band Builder [CONS] Routine Consult to Spiritual Care [CONS] Routine OT Evaluation and Treatment [CONS] Routine PT Evaluation and Treatment [CONS] Routine MAINTENANCE OF WAY CLERK Evaluation and Treatment [CONS] Routine - Patient Instructions Diet: Usual Diet as Tolerated Activity: As Tolerated Driving: Do Not Drive Showering/Bathing: May Shower Notify Provider of: Fever, Increased Pain, Nausea and/or Vomiting - Discharge Plan *PRESCRIPTION DRUG MONITORING PROGRAM REVIEWED*: Not Applicable *COPY OF PRESCRIPTION DRUG MONITORING REPORT IN PATIENT JULI: Not Applicable Prescriptions/Med Rec: Aspirin [Ecotrin] 81 mg PO DAILY #30 tab.ec Spironolactone [Aldactone] 12.5 mg PO DAILY 7 Days tab Home Medications: Home Meds Carvedilol 12.5 mg PO BID 05/28/13 [History] Citalopram [Citalopram HBr] 10 mg PO DAILY 05/28/13 [History] Clopidogrel [Plavix] 75 mg PO DAILY 05/28/13 [History] Insulin Aspart [NovoLOG] 9 units SUBCUT TIDAC 05/28/13 [History] Insulin Glarg,Human.Rec.Analog [Lantus] 12 units SQ 1700 05/28/13 [History] Insulin Glarg,Human.Rec.Analog [Lantus] 40 units SQ 0800 05/28/13 [History] Levothyroxine 25 mcg PO DAILY 05/28/13 [History] Lisinopril [Zestril] 20 mg PO Q12HR 05/28/13 [History] Omeprazole 40 mg PO DAILY 05/28/13 [History] atorvaSTATin [Lipitor] 20 mg PO BEDTIME 05/28/13 [History] Acetaminophen [Tylenol] 650 mg PO BID 05/20/18 [History] Diltiazem [Cardizem CD] 120 mg PO DAILY 05/20/18 [History] Multivitamin [Multivitamins] 1 each PO DAILY 05/20/18 [History] Nystatin [Nystatin Crm] 1 gm TOP BID PRN 05/20/18 [History] Aspirin [Ecotrin] 81 mg PO DAILY #30 tab.ec 05/22/18 [Rx] Furosemide [Lasix] 20 mg PO DAILY@0600 tablet 05/22/18 [Rx] Spironolactone [Aldactone] 12.5 mg PO DAILY 7 Days tab 05/22/18 [Rx] Oxygen Therapy Mode: Room Air Patient Handouts: Transient Ischemic Attack, [id number] Forms: ED Department Discharge Referrals: Jay Kowalski MD [Primary Care Provider] - 05/31/18 1:15 pm (please attend the follow up appointment with your primary care provider as scheduled) - Discharge Summary/Plan Comment DC Time >30 min.: No Discharge Summary/Plan Comment: Acute: TIA - Unclear in etiology - Suspect cardio embolic stroke; HR 51 (bradycardia) - Risk Factors: HTN, HLD, Carotid Atherosclerosis and DM2 - Head CT scan: senescent change. 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 Retention cysts, 1.3 cm in the sphenoid sinus. No acute intra-cranial abnormality is appreciated. 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 DM2 Depression Obesity Class II Plan: Med-Surg with Telemetry Resume Home Meds Stroke Protocol A1C in AM Brain MRI, 2D echo and Carotid Duplex U/S in AM PRN Medications Fall/Aspiration precautions PT/OT/MAINTENANCE OF WAY CLERK consult SW/CM for d/c planning Code status: 1 - General Info Date of Service: 05/20/18 Functional Status: Reports: Pain Controlled, Tolerating Diet, Ambulating, Urinating - Review of Systems General: Reports: No Symptoms HEENT: Reports: No Symptoms Pulmonary: Reports: No Symptoms Cardiovascular: Reports: No Symptoms Gastrointestinal: Reports: No Symptoms Genitourinary: Reports: No Symptoms Musculoskeletal: Reports: No Symptoms Skin: Reports: No Symptoms Neurological: Reports: No Symptoms Psychiatric: Reports: No Symptoms - Patient Data Vitals - Most Recent: Last Vital Signs Temp 36.6 C 05/22/18 11:45 Pulse 55 L 05/22/18 11:45 Resp 14 05/22/18 11:45 BP 129/44 L 05/22/18 11:45 Pulse Ox 92 L 05/22/18 11:45 Weight - Most Recent: 93.44 kg I&O - Last 24 hours: Intake & Output 05/21/18 05/22/18 05/22/18 22:59 06:59 14:59 Intake Total 500 400 540 Output Total 750 Balance 500 -350 540 Lab Results - Last 24 hrs: Laboratory Results - last 24 hr 05/21/18 05/21/18 05/22/18 Range/Units 16:51 21:30 05:18 Sodium 139 (136-145) mEq/L Potassium 3.7 (3.5-5.1) mEq/L Chloride 103 (98-107) mEq/L Carbon Dioxide 30 (21-32) mEq/L Anion Gap 9.7 (5-15) BUN 17 (7-18) mg/dL Creatinine 0.8 (0.55-1.02) mg/dL Est Cr Clr Drug Dosing 44.63 mL/min Estimated GFR (MDRD) > 60 (>60) mL/min BUN/Creatinine Ratio 21.3 H (14-18) Glucose 87 (83-115) mg/dL POC Glucose 140 H 170 H (83-110) mg/dL Calcium 8.5 (8.5-10.1) mg/dL Magnesium 2.1 (1.8-2.4) mg/dl 05/22/18 05/22/18 Range/Units 06:25 11:03 Sodium (136-145) mEq/L Potassium (3.5-5.1) mEq/L Chloride (98-107) mEq/L Carbon Dioxide (21-32) mEq/L Anion Gap (5-15) BUN (7-18) mg/dL Creatinine (0.55-1.02) mg/dL Est Cr Clr Drug Dosing mL/min Estimated GFR (MDRD) (>60) mL/min BUN/Creatinine Ratio (14-18) Glucose (83-115) mg/dL POC Glucose 98 215 H (83-110) mg/dL Calcium (8.5-10.1) mg/dL Magnesium (1.8-2.4) mg/dl Med Orders - Current: Current Medications Acetaminophen (Tylenol) 650 mg PO Q4H PRN PRN Reason: Pain (Mild 1-3)/fever Acetaminophen (Tylenol) 650 mg PO BID [facility] Last Admin: 05/22/18 08:57 Dose: 650 mg Hydrocodone Bitart/Acetaminophen ([place] 325-5 Mg) 1 tab PO Q4H PRN PRN Reason: Pain (moderate 4-6) Albuterol/Ipratropium (Duoneb 3.0-0.5 Mg/3 Ml) 3 ml NEB Q4H PRN PRN Reason: Shortness Of Breath/wheezing Aspirin (Ecotrin) 325 mg PO DAILY [facility] Last Admin: 05/22/18 12:25 Dose: 325 mg Bisacodyl (Dulcolax) 5 mg PO DAILY PRN PRN Reason: Constipation Carvedilol (Coreg) 25 mg PO BID [facility] Last Admin: 05/22/18 08:55 Dose: 25 mg Citalopram Hydrobromide (Celexa) 10 mg PO DAILY [facility] Last Admin: 05/22/18 08:58 Dose: 10 mg Clopidogrel Bisulfate (Plavix) 75 mg PO DAILY [facility] Last Admin: 05/22/18 08:58 Dose: 75 mg Dextrose/Water (Dextrose 50% In Water) 50 ml IVPUSH ASDIRECTED PRN PRN Reason: Hypoglycemia Diltiazem HCl (Cardizem Cd) 120 mg PO DAILY [facility] Last Admin: 05/22/18 08:58 Dose: 120 mg Docusate Sodium (Colace) 100 mg PO BID PRN PRN Reason: Constipation Furosemide (Lasix) 20 mg PO DAILY@0600 [facility] Last Admin: 05/22/18 06:27 Dose: 20 mg Hydralazine HCl (Apresoline) 10 mg IVPUSH Q4H PRN PRN Reason: Hypertension Hydrocortisone (Hydrocortisone 1% Crm) 0.001 gm TOP BID [facility] Last Admin: 05/22/18 08:54 Dose: Not Given Hydromorphone HCl (Dilaudid) 0.25 mg IVPUSH Q2H PRN PRN Reason: Pain (severe 7-10) Insulin Glargine (Lantus) 12 unit SUBCUT DAILY@1700 [facility] Last Admin: 05/21/18 17:16 Dose: 12 units Insulin Glargine (Lantus) 40 unit SUBCUT DAILY@0800 [facility] Last Admin: 05/22/18 09:00 Dose: 40 units Insulin Human Lispro (Humalog) 0 unit SUBCUT QIDACANDBED [facility]; Protocol Last Admin: 05/22/18 12:19 Dose: 2 units Levothyroxine Sodium (Levothyroxine) 25 mcg PO DAILY [facility] Last Admin: 05/22/18 08:54 Dose: 25 mcg Lisinopril (Prinivil) 20 mg PO Q12HR [facility] Last Admin: 05/22/18 08:55 Dose: 20 mg Lorazepam (Ativan) 2 mg IVPUSH Q4H PRN PRN Reason: Seizures Lorazepam (Ativan) 0.25 mg IV Q6H PRN PRN Reason: Anxiety Metoprolol Tartrate (Lopressor) 5 mg IVPUSH Q4H PRN PRN Reason: Tachycardia Multivitamins (Thera) 1 each PO DAILY [facility] Last Admin: 05/22/18 08:54 Dose: 1 each Nystatin (Nystatin Crm) 0 gm TOP BID [facility] Last Admin: 05/22/18 08:54 Dose: 1 applic Ondansetron HCl (Zofran) 4 mg IV Q6H PRN PRN Reason: Nausea/Vomiting Pantoprazole Sodium (Protonix) 40 mg PO DAILY@0700 [facility] Last Admin: 05/22/18 06:27 Dose: 40 mg Polyethylene Glycol (Miralax) 17 gm PO DAILY PRN PRN Reason: Constipation Senna/Docusate Sodium (Senna Plus) 1 tab PO BID PRN PRN Reason: Constipation Simvastatin (Zocor) 20 mg PO BEDTIME [facility] Last Admin: 05/21/18 20:21 Dose: 20 mg Sodium Chloride (Saline Flush) 10 ml FLUSH ASDIRECTED PRN PRN Reason: Keep Vein Open Last Admin: 05/20/18 13:55 Dose: 10 ml Spironolactone (Aldactone) 12.5 mg PO 0600 [facility] Last Admin: 05/22/18 06:27 Dose: 12.5 mg Discontinued Medications Furosemide (Lasix) 20 mg PO DAILY [facility] Magnesium Sulfate (Pharmacy To Dose - Magnesium Replacement) 0 dose .XX ASDIRECTED PRN PRN Reason: RX TO WATCH MAG Ondansetron HCl (Zofran) 4 mg IVPUSH ONETIME ONE Stop: 05/20/18 14:08 Last Admin: 05/20/18 14:10 Dose: 4 mg Potassium Chloride (Pharmacy To Dose - Potassium Replacement) 0 dose .XX ASDIRECTED PRN PRN Reason: RX TO WATCH K Spironolactone (Aldactone) 12.5 mg PO DAILY [facility] - Exam Quality Assessment: Reports: DVT Prophylaxis General: Reports: Alert, Oriented, Cooperative, No Acute Distress HEENT: Reports: Pupils Equal, Pupils Reactive, EOMI Neck: Reports: Trachea Midline, No JVD Lungs: Reports: Normal Respiratory Effort Cardiovascular: Reports: Regular Rate GI/Abdominal Exam: Normal Bowel Sounds, Soft, Non-Tender, No Organomegaly, No Distention (Female) Exam: Deferred Rectal (Female) Exam: Deferred Back Exam: Reports: Normal Inspection Extremities: Normal Inspection, Non-Tender, Normal Capillary Refill Skin: Reports: Warm Neurological: Reports: No New Focal Deficit Psy/Mental Status: Reports: Alert, Normal Affect, Normal Mood
== END 2018-05-22 15:33 | disposition home or self-care (01) | DRG 69 ==
LOC: JD.ED 13:47 → JD.MS 16:53
PROVIDERS: ADMIT Internal Medicine; ATTEND Internal Medicine
DX: G45.9 Transient cerebral ischemic attack, unspecified (principal); I10 Essential (primary) hypertension; K21.9 Gastro-esophageal reflux disease without esophagitis; E78.00 Pure hypercholesterolemia, unspecified; F32.9 Major depressive disorder, single episode, unspecified; E66.9 Obesity, unspecified; I25.10 Atherosclerotic heart disease of native coronary artery without angina pectoris; E11.9 Type 2 diabetes mellitus without complications; E78.5 Hyperlipidemia, unspecified; M54.9 Dorsalgia, unspecified; G89.29 Other chronic pain; I65.29 Occlusion and stenosis of unspecified carotid artery; R00.1 Bradycardia, unspecified; D69.6 Thrombocytopenia, unspecified; I25.2 Old myocardial infarction; M19.90 Unspecified osteoarthritis, unspecified site; M81.0 Age-related osteoporosis without current pathological fracture; Z88.5 Allergy status to narcotic agent; Z88.8 Allergy status to other drugs, medicaments and biological substances; R41.82 Altered mental status, unspecified; R51 Headache; H53.8 Other visual disturbances; Z79.899 Other long term (current) drug therapy; Z79.890 Hormone replacement therapy; Z79.4 Long term (current) use of insulin; Z95.1 Presence of aortocoronary bypass graft; Z95.5 Presence of coronary angioplasty implant and graft; Z66 Do not resuscitate; Z68.31 Body mass index [BMI] 31.0-31.9, adult; Z79.02 Long term (current) use of antithrombotics/antiplatelets
CPT/HCPCS: 36415; 70450; 80053; 81001; 82962; 84484; 85025; 85610; 85652; 85730; 93005; 96374; 99285; J2405; 70551; 70551-26; 80048; 80061; 83036; 83735; 87641; 93010; 93306; 93880; 93880-26; 96125-GN; 97161-GP; 97165-GO; A9270-GY; J1815-GY